=== PATIENT | male | born 1960 | race African-American/Black ===

== ENCOUNTER → 2020-04-16 | Outpatient (CLI) | payer OTHER ==
[2020-04-16 08:02] LABS: Basophils # (auto) 0.1 10 ^3/uL (0-0.2); Basophils % (auto) 1.4 % (0.0-2.0); Eosinophils # (auto) 0.3 10 ^3/uL (0-0.8); Eosinophils % (auto) 4.1 % (0.0-7.0); Hematocrit 49.4 % (41.0-53.0); Hemoglobin 16.8 g/dL (13.5-17.5); Lymphocytes # (auto) 1.8 10 ^3/uL (0.4-5.4); Mean Corpuscular Hemoglobin 31.6 pg (28.0-32.0); Mean Corpuscular Volume 93.1 fL (80.0-100.0); Monocytes # (auto) 0.8 10 ^3/uL (0-1.3); Monocytes % (auto) 11.2 % (0.0-12.0); Neutrophils # (auto) 3.9 10 ^3/uL (1.6-8.6); Neutrophils % (auto) 57.3 % (37.0-80.0); Nucleated Red Blood Cells % 0.3 %; Platelet Count (auto) 243 10^3/uL (140-450); Red Cell Distribution Width 13.1 % (11.8-14.3); White Blood Cell 6.8 10^3/uL (4.4-10.8)
[2020-04-16 08:46] LABS: Urine Bacteria NONE SEEN /hpf (None Seen); Urine Blood Negative /uL (Negative); Urine Mucus FEW (None Seen); Urine Specific Gravity 1.019 (1.001-1.035); Urine WBC <1 /hpf (0 - 3)
[2020-04-16 08:51] LABS: Albumin 3.5 g/dL (3.4-5.0); Potassium 4.4 mmol/L (3.5-5.1)
[2020-04-16 08:57] LABS: BUN/Creatinine Ratio 16.2; Bilirubin, Total 0.4 mg/dL (0.2-1.0); Total Protein 7.1 g/dL (6.4-8.2)
[2020-04-16 08:59] LABS: Prostate Specific Antigen 0.38 ng/mL (0.0-4.0)
== END | disposition home or self-care (01) ==
LOC: LAB 07:22
PROVIDERS: ATTEND Family Medicine
DX: Z12.5 Encounter for screening for malignant neoplasm of prostate (principal); I10 Essential (primary) hypertension; I25.10 Atherosclerotic heart disease of native coronary artery without angina pectoris; E66.9 Obesity, unspecified; E78.49 Other hyperlipidemia; F17.200 Nicotine dependence, unspecified, uncomplicated
CPT/HCPCS: 36415; 80053; 80061; 81001; 82607; 83036; 84153; 84443; 85025

== ENCOUNTER → 2021-04-21 | Outpatient (CLI) | payer OTHER | END | disposition home or self-care (01) | LOC: LAB 13:40 | PROVIDERS: ATTEND Nurse Practitioner Family | DX: Z20.822 Contact with and (suspected) exposure to COVID-19 (principal) | CPT/HCPCS: C9803; U0003 ==

== ENCOUNTER 2022-01-31 17:19 | Inpatient (IN) | payer OTHER ==
[~2022-01-31] VITALS: Ht 175.3 cm; Wt 111.5 kg
[2022-01-31 17:00] VITALS: BP 119/74
[2022-01-31 17:40] VITALS: BP 119/74
[2022-01-31] MEDS ORDERED: NITROGLYCERIN 0.4 MG SL TAB SL PRN (18:30)
[2022-01-31] MEDS ORDERED: HYDROcodone-ACET 5/325MG TAB PO PRN (18:30)
[2022-01-31] MEDS ORDERED: LORazepam 0.5 MG TAB PO PRN (18:30)
[2022-01-31] MEDS ORDERED: ACETAMINOPHEN 325 MG TAB PO PRN (18:30)
[2022-01-31] MEDS ORDERED: ONDANSETRON HCL 4 MG/2 ML VIAL IV PRN (18:30)
[2022-01-31] MEDS ORDERED: MORPHINE SULFATE INJ 2 MG/ml SYRG IV PRN ×2 (18:30)
[2022-01-31] MEDS ORDERED: CLON0.2D6 PO (18:36)
[2022-01-31] MEDS ORDERED: IBUP800T26 PO (18:36)
[2022-01-31] MEDS ORDERED: POTA1TAB4 PO (18:36)
[2022-01-31] MEDS ORDERED: MIN25T PO (18:36)
[2022-01-31] MEDS ORDERED: FUR20T PO (18:36)
[2022-01-31] MEDS ORDERED: CARV12.544 PO (18:36)
[2022-01-31] MEDS ORDERED: AMIODARONE 450mg/250ml AE 250 ML IV SCH (19:15)
[2022-01-31 19:44] LABS: Basophils # (auto) 0.2 10 ^3/uL (0-0.2); Basophils % (auto) 1.2 % (0.0-2.0); Eosinophils # (auto) 0.1 10 ^3/uL (0-0.8); Eosinophils % (auto) 0.9 % (0.0-7.0); Hematocrit 42.1 % (41.0-53.0); Hemoglobin 13.9 g/dL (13.5-17.5); Lymphocytes # (auto) 2.3 10 ^3/uL (0.4-5.4); Mean Corpuscular Hemoglobin 30.6 pg (28.0-32.0); Mean Corpuscular Volume 92.6 fL (80.0-100.0); Monocytes # (auto) 1.2 10 ^3/uL (0-1.3); Monocytes % (auto) 9.6 % (0.0-12.0); Neutrophils # (auto) 9.1 10 ^3/uL (1.6-8.6); Neutrophils % (auto) 70.3 % (37.0-80.0); Nucleated Red Blood Cells % 0.2 %; Red Blood Cells 4.54 10^6/uL (4.5-5.90); Red Cell Distribution Width 14.2 % (11.8-14.3)
[2022-01-31 19:49] LABS: Albumin 3.4 g/dL (3.4-5.0); Calcium 8.7 mg/dL (8.5-10.1); Magnesium 2.6 mg/dL (1.6-2.6); Potassium 4.1 mmol/L (3.5-5.1)
[2022-01-31 19:52] LABS: BUN/Creatinine Ratio 17.9; Bilirubin, Total 0.3 mg/dL (0.2-1.0); Phosphorus 4.6 mg/dL (2.5-4.90); Total Protein 6.5 g/dL (6.4-8.2)
[2022-01-31 19:56] LABS: INR 1.12 (0.9-1.15); Partial Thromboplastin Time 27.6 sec (24.6-33.4)
[2022-01-31 20:00] VITALS: BP 124/73
[2022-01-31] MEDS: ENOXAPARIN SOD 120 MG/0.8 ML SYRINGE SC SCH (21:59)
[2022-01-31 22:00] VITALS: BP 124/73
[2022-01-31] MEDS: SODIUM CHLOR 0.9% PF (SALINE LOCK) 10ML VIAL/SYR IV SCH (22:00)
[2022-01-31 22:30] LABS: Urine Bacteria NONE SEEN /hpf (None Seen); Urine Blood Negative /uL (Negative); Urine Specific Gravity 1.014 (1.001-1.035); Urine WBC <1 /hpf (0 - 3)
[2022-02-01] MEDS ORDERED: AMIODARONE 450mg/250ml AE 250 ML IV SCH (01:15)
[2022-02-01 05:00] VITALS: BP 131/82
[2022-02-01] MEDS: SODIUM CHLOR 0.9% PF (SALINE LOCK) 10ML VIAL/SYR IV SCH ×3 (05:28→21:58)
[2022-02-01 05:37] LABS: Potassium 4.4 mmol/L (3.5-5.1)
[2022-02-01 05:46] LABS: Albumin 3.3 g/dL (3.4-5.0); BUN/Creatinine Ratio 20.7; Bilirubin, Total 0.5 mg/dL (0.2-1.0); Calcium 9.1 mg/dL (8.5-10.1); Total Protein 6.2 g/dL (6.4-8.2)
[2022-02-01] MEDS: ENOXAPARIN SOD 120 MG/0.8 ML SYRINGE SC SCH ×2 (07:50→20:38)
[2022-02-01 09:00] VITALS: BP 168/103
[2022-02-01] MEDS: AMIODARONE HCL 200 MG TAB PO SCH ×2 (09:33→22:00)
[2022-02-01] MEDS ORDERED: ASPI-543 PO (11:19)
[2022-02-01] MEDS ORDERED: ISOS20TA5 PO (11:19)
[2022-02-01] MEDS ORDERED: ISOSORBIDE DINITRATE 10 MG TAB PO ONE (11:30)
[2022-02-01] MEDS ORDERED: CARVEDILOL 12.5 MG TAB PO ONE (11:30)
[2022-02-01] MEDS ORDERED: cloNIDine HCL 0.1 MG TAB PO ONE (11:30)
[2022-02-01] MEDS ORDERED: ASPirin 81 mg TAB PO ONE (11:30)
[2022-02-01] MEDS ORDERED: MINOXIDIL 2.5 MG TAB PO ONE (11:30)
[2022-02-01 13:00] VITALS: BP 155/87
[2022-02-01] MEDS: CARVEDILOL 12.5 MG TAB PO SCH (18:01)
[2022-02-01] MEDS ORDERED: DEXTROSE (50%) 50ML SYRG IV PRN (18:30)
[2022-02-01] MEDS ORDERED: ERGOCALCIFEROL 50,000 UNIT(1.25MG) CAP PO SCH (18:30)
[2022-02-01 21:39] VITALS: BP 136/84
[2022-02-01] MEDS: cloNIDine HCL 0.1 MG TAB PO SCH (21:59)
[2022-02-01] MEDS: InsuLIN REG 1unit/0.01ml Soln (100units/ml) SC SCH (22:00)
[2022-02-01] MEDS: ISOSORBIDE DINITRATE 10 MG TAB PO SCH (22:00)
[2022-02-01] MEDS: ACCU-CHEK COMFORT CURVE STRIP VI SCH (22:01)
[2022-02-01] MEDS: MINOXIDIL 2.5 MG TAB PO SCH (22:01)
[2022-02-02 04:00] VITALS: BP 114/70
[2022-02-02 04:59] VITALS: BP 114/70
[2022-02-02 05:34] LABS: Protein, Urine 15.9 mg/dL (0.0-11.9)
[2022-02-02] MEDS: SODIUM CHLOR 0.9% PF (SALINE LOCK) 10ML VIAL/SYR IV SCH (06:07)
[2022-02-02] MEDS: InsuLIN REG 1unit/0.01ml Soln (100units/ml) SC SCH ×2 (06:08→11:30)
[2022-02-02] MEDS: ACCU-CHEK COMFORT CURVE STRIP VI SCH ×2 (06:08→11:54)
[2022-02-02 06:12] LABS: Calcium 8.3 mg/dL (8.5-10.1); Magnesium 2.8 mg/dL (1.6-2.6); Potassium 4.1 mmol/L (3.5-5.1)
[2022-02-02 06:14] LABS: BUN/Creatinine Ratio 19.7; Phosphorus 3.7 mg/dL (2.5-4.90)
[2022-02-02 08:10] VITALS: BP 138/85
[2022-02-02] MEDS ORDERED: APIXABAN 5 MG TAB PO SCH (08:37)
[2022-02-02] MEDS: CARVEDILOL 12.5 MG TAB PO SCH (08:37)
[2022-02-02 09:00] VITALS: BP 138/85
[2022-02-02] MEDS ORDERED: AMIO200T4 PO (09:38)
[2022-02-02] MEDS ORDERED: ERGO1CAP23 PO (09:38)
[2022-02-02] MEDS ORDERED: APIX5TAB PO (09:38)
[2022-02-02] MEDS ORDERED: ASPirin 81 mg TAB PO SCH (10:00)
[2022-02-02] MEDS ORDERED: FUROSEMIDE 20 MG/2 ML VIAL IV SCH (10:00)
[2022-02-02] MEDS: AMIODARONE HCL 200 MG TAB PO SCH (10:02)
[2022-02-02] MEDS: cloNIDine HCL 0.1 MG TAB PO SCH (10:02)
[2022-02-02] MEDS: ISOSORBIDE DINITRATE 10 MG TAB PO SCH (10:03)
[2022-02-02] MEDS: MINOXIDIL 2.5 MG TAB PO SCH (10:03)
[2022-02-02 11:19] VITALS: BP 135/76
== END 2022-02-02 12:30 | disposition home or self-care (01) | DRG 291 ==
LOC: UNDOADMIN 17:21 → TELE-CENTR 17:21
PROVIDERS: ADMIT Internal Medicine; ATTEND Internal Medicine
DX: I13.0 Hypertensive heart and chronic kidney disease with heart failure and stage 1 through stage 4 chronic kidney disease, or unspecified chronic kidney disease (principal); I50.43 Acute on chronic combined systolic (congestive) and diastolic (congestive) heart failure; N17.0 Acute kidney failure with tubular necrosis; E44.0 Moderate protein-calorie malnutrition; D68.69 Other thrombophilia; I48.91 Unspecified atrial fibrillation; I42.9 Cardiomyopathy, unspecified; E11.22 Type 2 diabetes mellitus with diabetic chronic kidney disease; N18.32 Chronic kidney disease, stage 3b; E66.01 Morbid (severe) obesity due to excess calories; E78.5 Hyperlipidemia, unspecified; F17.210 Nicotine dependence, cigarettes, uncomplicated; I25.10 Atherosclerotic heart disease of native coronary artery without angina pectoris; Z20.822 Contact with and (suspected) exposure to COVID-19; Z79.899 Other long term (current) drug therapy; Z82.3 Family history of stroke; Z82.49 Family history of ischemic heart disease and other diseases of the circulatory system; Z95.5 Presence of coronary angioplasty implant and graft; Z68.36 Body mass index [BMI] 36.0-36.9, adult
CPT/HCPCS: 36415; 71046; 78582; 80048; 80053; 80061; 81001; 82306; 82570; 82962; 83036; 83735; 83880; 83935; 84100; 84156; 84300; 84443; 84484; 85025; 85379; 85610; 85730; 87081; 93005; 93306; 93970; G0378

== ENCOUNTER → 2022-03-16 | Outpatient (CLI) | payer OTHER ==
[~2022-03-16] MED LIST: AMIO200T4 PO; APIX5TAB PO; CARV12.544 PO; CLON0.2D6 PO; ERGO1CAP23 PO; FUR20T PO; ISOS20TA5 PO; MIN25T PO; POTA1TAB4 PO
[2022-03-16 11:09] LABS: Basophils # (auto) 0.1 10 ^3/uL (0-0.2); Basophils % (auto) 0.8 % (0.0-2.0); Eosinophils # (auto) 0.2 10 ^3/uL (0-0.8); Eosinophils % (auto) 3.9 % (0.0-7.0); Hematocrit 43.5 % (41.0-53.0); Hemoglobin 14.7 g/dL (13.5-17.5); Lymphocytes # (auto) 1.2 10 ^3/uL (0.4-5.4); Lymphocytes % (auto) 18.7 % (10.0-50.0); Mean Corpuscular Hgb Conc. 33.7 g/dL (32.0-36.0); Mean Corpuscular Volume 91.9 fL (80.0-100.0); Monocytes # (auto) 0.8 10 ^3/uL (0-1.3); Monocytes % (auto) 12.6 % (0.0-12.0); Neutrophils # (auto) 4.1 10 ^3/uL (1.6-8.6); Nucleated Red Blood Cells % 0.1 %; Red Blood Cells 4.74 10^6/uL (4.5-5.90); Red Cell Distribution Width 13.6 % (11.8-14.3); White Blood Cell 6.4 10^3/uL (4.4-10.8)
== END | disposition home or self-care (01) ==
LOC: LAB 10:42
PROVIDERS: ATTEND Internal Medicine
DX: Z12.11 Encounter for screening for malignant neoplasm of colon (principal); I10 Essential (primary) hypertension; E55.9 Vitamin D deficiency, unspecified; R73.03 Prediabetes
CPT/HCPCS: 36415; 82043; 84153; 85025

== ENCOUNTER 2024-09-17 06:24 | Inpatient (IN) | payer OTHER, MEDICARE ==
[~2024-09-17] VITALS: Ht 175.3 cm; Wt 95.0 kg
[2024-09-17] VITALS (8 sets, daily range): BP systolic 125; BP diastolic 69; PULSE 74–98; RESP 16–20; TEMP 98.3; O2SAT 95–100
[~2024-09-17 06:24] MED LIST changes: +AMIO200T13 PO; -AMIO200T4 PO; -FUR20T PO; +FURO20TA4 PO
--- NOTE | 2024-09-17 06:41 | ED.PDOC ---
SOB-HPI HPI Comments 64 year old male presents to the ED with chief complaint of SOB. Patient reports that he has been experiencing worsening SOB with associated cough for the past 2 days. Patient relays that he has similar symptoms 2 weeks ago and was seen at another hospital. Patient states he was prescribed with an albuterol inhaler and nebulizer along with Prednisone, but his nebulizer has not provided much relief for his SOB these past 2 days. Patient denies any N/V, chest pain, fever, chills, nasal congestion, headache, or dizziness. Time Seen by MD: 06:37 Reviewed notes: Nurses Notes, Medications, Allergies Information Source: Patient Mode of Arrival: Ambulatory Severity: Moderate Timing: Days Duration: Since onset Context: At Rest PE Risk Factors: None History of: None Prehospital treatment: Breathing Tx Modifying Factors: Nothing Associated Signs and Symptoms: Cough If cough with SOB: Non-Productive Past Medical History PAST MEDICAL HISTORY: HTN, CT Surgical History: PTCA Family History Family History: Reviewed,noncontributory to illness Social History Smoker: Cigarettes Alcohol: Denies ETOH Use Drugs: Denies Drug Use Lives In: Home Constitutional: denies: chills, diaphoresis, fatigue, fever, malaise, sweats, weakness, others EENTM: denies: blurred vision, double vision, ear bleeding, ear discharge, ear drainage, ear pain, ear ringing, eye pain, eye redness, hearing loss, mouth pain, mouth swelling, nasal discharge, nose bleeding, nose congestion, nose pain, photophobia, tearing, throat pain, throat swelling, voice changes, others Respiratory: reports: cough, shortness of breath; denies: hemoptysis, orthopnea, SOB at rest, SOB with excertion, stridor, wheezing, others Cardiovascular: denies: chest pain, dizzy spells, diaphoresis, Dyspnea on exertion, edema, irregular heart beat, left arm pain, lightheadedness, palpitations, PND, syncope, others Gastrointestinal: denies: abdomen distended, abdominal pain, blood streaked bowels, constipated, diarrhea, dysphagia, difficulty swallowing, hematemesis, melena, nausea, poor appetite, poor fluid intake, rectal bleeding, rectal pain, vomiting, others Genitourinary: denies: burning, dysuria, flank pain, frequency, hematuria, incontinence, penile discharge, penile sore, pain, testicle pain, testicle swelling, urgency, others Neurological: denies: dizziness, fainting, headache, left sided numbness, left sided weakness, numbness, paresthesia, pre-existing deficit, right sided numbness, right sided weakness, seizure, speech problems, tingling, tremors, weakness, others Musculoskeletal: denies: back pain, gout, joint pain, joint swelling, muscle pain, muscle stiffness, neck pain, others Integumetry: denies: bruises, change in color, change in hair/nails, dryness, laceration, lesions, lumps, rash, wounds, others Allergic/Immunocompromised: denies: Difficulty Healing, Frequent Infections, Hives, Itching, others Hematologic/Lymphatic: denies: anemia, blood clots, easy bleeding, easy bruising, swollen glands, others Endocrine: denies: excessive hunger, excessive sweating, excessive thirst, excessive urination, flushing, intolerance to cold, intolerance to heat, unexplained weight gain, unexplained weight loss, others Psychiatric: denies: anxiety, bipolar disorder, depression, hopeless, panic disorder, schizophrenia, sleepless, suicidal, others All Other Systems: Reviewed and Negative Physical Exam General Appearance: Moderate Distress, Normal HEENT: Normal ENT Inspection, Pharynx Normal, TMs Normal Neck: Full Range of Motion, Non-Tender, Normal, Normal Inspection Respiratory: Chest Non-Tender, No Accessory Muscle Use, No Respiratory Distre ss, Other (Coarse breath sounds) Cardiovascular: No Edema, No JVD, No Murmur, No Gallop, Normal Peripheral Pulses, Regular Rate/Rhythm Breast Exam: Deferred Gastrointestinal: No Organomegaly, Non Tender, No Pulsatile Mass, Normal Bowel Sounds, Soft Genitalia: Deferred Pelvic: Deferred Rectal: Deferred Extremities: No calf tenderness, Normal capillary refill, Normal inspection, Normal range of motion, Non-tender, No pedal edema Musculoskeletal : Apperance: Normal Neurologic: Alert, game programer II-XII nml as Tested, No Motor Deficits, Normal Affect, Normal Mood, No Sensory Deficits Cerebellar Function: Normal Reflexes: Normal Skin: Dry, Normal Color, Warm Peripheral Pulses: 3+ Radial (R), 3+ Radial (L) Lymphatic: No Adenopathy EKG EKG : Pulse Rate (adult): 93 [place]: Normal Cardiac Rhythm: NSR Block: None Hypertrophy: None ST: Normal Was a procedure done? Was a procedure done?: No Differential Dx Differential Diagnosis: Asthma, CHF, COPD, Myocardial infarction, Pneumonia, Respiratory Distress X-Ray, Labs, Meds, VS Vital Signs Date Time Temp Pulse Resp B/P (MAP) Pulse Ox O2 Delivery O2 Flow Rate FiO2 09/17/24 07:06 93 09/17/24 06:48 20 96 Room Air* 0 21 09/17/24 06:40 93 09/17/24 06:30 97 Room Air* 0 21 09/17/24 06:30 98.3 91 18 149/92 (111) 97 98.3 Lab Test 09/17/24 08:08 09/17/24 07:00 Range/Units Troponin I High Sensitivity Pending 865 *H </=54 ng/L White Blood Count 9.0 4.4-10.8 10^3/uL Red Blood Count 4.32 L 4.5-5.90 10^6/uL Hemoglobin 13.6 13.5-17.5 g/dL Hematocrit 40.5 L 41.0-53.0 % Mean Corpuscular Volume 93.8 80.0-100.0 fL Mean Corpuscular Hemoglobin 31.6 28.0-32.0 pg Mean Corpuscular Hemoglobin Concent 33.7 32.0-36.0 g/dL Red Cell Distribution Width 14.3 11.8-14.3 % Platelet Count 266 140-450 10^3/uL Mean Platelet Volume 7.6 6.9-10.8 fL Neutrophils (%) (Auto) 67.2 37.0-80.0 % Lymphocytes (%) (Auto) 13.7 10.0-50.0 % Monocytes (%) (Auto) 15.8 H 0.0-12.0 % Eosinophils (%) (Auto) 2.5 0.0-7.0 % Basophils (%) (Auto) 0.8 0.0-2.0 % Neutrophils # (Auto) 6.1 1.6-8.6 10 ^3/uL Lymphocytes # (Auto) 1.2 0.4-5.4 10 ^3/uL Monocytes # (Auto) 1.4 H 0-1.3 10 ^3/uL Eosinophils # (Auto) 0.2 0-0.8 10 ^3/uL Basophils # (Auto) 0.1 0-0.2 10 ^3/uL Nucleated Red Blood Cells 0.0 % Sodium Level 145 136-145 mmol/L Potassium Level 3.9 3.5-5.1 mmol/L Chloride Level 108 H 98-107 mmol/L Carbon Dioxide Level 27 20-31 mmol/L Anion Gap 10 5-15 Blood Urea Nitrogen 36 H 9-23 mg/dL Creatinine 2.19 H 0.700-1.30 mg/dL Glomerular Filtration Rate Calc 32 >90 mL/min BUN/Creatinine Ratio 16.4 10.0-20.0 Serum Glucose 138 H 74-106 mg/dL Calcium Level 10.0 8.7-10.4 mg/dL Current Medications Medications (Trade) Dose Ordered Sig/[place] Route Start Time Stop Time Status Last Admin Methylprednisolone Sodium Succinate (Solu Medrol) 40 mg ONCE ONCE IV 09/17/24 06:45 09/17/24 06:46 DC 09/17/24 08:05 Albuterol (Ventolin Medneb) 5 mg ONCE ONCE NEB 09/17/24 06:45 09/17/24 06:46 DC 09/17/24 06:48 Ipratropium [place] (Atrovent Medneb) 0.5 mg ONCE ONCE NEB 09/17/24 06:45 09/17/24 06:46 DC 09/17/24 06:48 Ceftriaxone Sodium 50 ml @ 100 mls/hr ONCE ONCE IV 09/17/24 06:45 09/17/24 07:14 DC 09/17/24 08:06 Chest XR: FINDINGS: LUNGS AND PLEURAL SPACES: Left basilar atelectasis or pneumonia. HEART: Cardiomegaly with mild congestion. MEDIASTINUM: Unremarkable. Normal mediastinal contour. BONES/JOINTS: Unremarkable. No acute fracture. OTHER FINDINGS: . . IMPRESSION: 1. Left basilar atelectasis or pneumonia. 2. Cardiomegaly with mild congestion. Patient alert. Complaining of shortness a breath. Vitals stable. Answering questions. Blood pressure elevated. Chest x-ray reviewed does show pneumonia. Establish intravenous access. Was given fluids. Was given Rocephin. Was given azithromycin. Was given steroid. Cardiac marker elevated. EKG does not show any acute changes. Cardiology consultation. Was given Lovenox. Explained to the patient his lab results along with chest x-ray findings. Continue monitoring. Images Reviewed?: Images reviewed and evaluated by me Time of 1ST Reevaluation: 07:37 Reevaluation 1ST: Unchanged Patient Education/Counseling: Diagnosis, Treatment Family Education/Counseling: No Family Present Additional Information The following tests were ordered, and results were reviewed by me: CBC, BMP, troponin, Chest XR, EKG Additional Information was gathered from interviewing the following independent historians: None I reviewed and agreed with the following test results read by other providers: Chest XR I discussed treatment and results with medical personnel and: patient Comprehensive systems review obtained and negative except for what is stated in the HPI. Departure 1 Departure Time of Disposition: 08:18 Impression: Primary Impression: NSTEMI (non-ST elevated myocardial infarction) Additional Impression: Pneumonia Qualified Codes: J18.9 - Pneumonia, unspecified organism Disposition: ADMITTED INPATIENT Admit to: Med Surg Condition: Guarded Comments Spoke to and examined patient at 0637, discussing treatment plan at this time. Critical Care Note Critical Care Time?: Yes (90 min-critical care time only) Critical care comment: Elevated troponin was given Lovenox continue monitoring Stability Stability form required: No Heart Score Heart Score: Heart Score Response (Comments) Value History Moderate Suspicious 1 EKG Normal 0 Age >65 2 Risk Factors >3 or Hx ASHD 2 Troponin >3 x's Normal limit 2 Total 7 I personally scribed for MARTIN MORALES MD (KATHIE) on 09/17/24 at 06:41. Electronically submitted by Candido Whittington ([email or web address]). I personally scribed for MARTIN MORALES MD (KATHIE) on 09/17/24 at 07:06. E lectronically submitted by Candido Whittington ([email or web address]). I personally scribed for MARTIN MORALES MD (KATHIE) on 09/17/24 at 07:59. Electronically submitted by Candido Whittington ([email or web address]). MARTIN MORALES MD September 17, 2024 06:41
[2024-09-17] MEDS: ALBUTEROL SULF 2.5 MG/0.5ML(0.5%) NEB SOLN NEB ONE (06:48)
[2024-09-17] MEDS: IPRATROPIUM BROM 0.5 MG/2.5ML INH SOL NEB ONE (06:48)
[2024-09-17 07:18] LABS: Basophils # (auto) 0.1 10 ^3/uL (0-0.2); Basophils % (auto) 0.8 % (0.0-2.0); Eosinophils # (auto) 0.2 10 ^3/uL (0-0.8); Eosinophils % (auto) 2.5 % (0.0-7.0); Hematocrit 40.5 % (41.0-53.0); Hemoglobin 13.6 g/dL (13.5-17.5); Lymphocytes # (auto) 1.2 10 ^3/uL (0.4-5.4); Lymphocytes % (auto) 13.7 % (10.0-50.0); Mean Corpuscular Hemoglobin 31.6 pg (28.0-32.0); Mean Corpuscular Hgb Conc. 33.7 g/dL (32.0-36.0); Mean Corpuscular Volume 93.8 fL (80.0-100.0); Monocytes # (auto) 1.4 10 ^3/uL (0-1.3); Monocytes % (auto) 15.8 % (0.0-12.0); Neutrophils # (auto) 6.1 10 ^3/uL (1.6-8.6); Neutrophils % (auto) 67.2 % (37.0-80.0); Platelet Count (auto) 266 10^3/uL (140-450); Red Blood Cells 4.32 10^6/uL (4.5-5.90); Red Cell Distribution Width 14.3 % (11.8-14.3)
[2024-09-17 07:26] LABS: Potassium 3.9 mmol/L (3.5-5.1); Sodium 145 mmol/L (136-145)
[2024-09-17 07:27] LABS: Anion Gap 10 (5-15); Carbon Dioxide 27 mmol/L (20-31)
--- NOTE | 2024-09-17 07:31 | ECG ---
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
[2024-09-17 07:32] LABS: BUN/Creatinine Ratio 16.4 (10.0-20.0); Blood Urea Nitrogen 36 mg/dL (9-23); Chloride 108 mmol/L (98-107); Glucose 138 mg/dL (74-106)
--- NOTE | 2024-09-17 07:36 | DVH ---
EXAM: XR Chest, 1 View CLINICAL INDICATION: sob TECHNIQUE: Frontal view of the chest. COMPARISON: None FINDINGS: LUNGS AND PLEURAL SPACES: Left basilar atelectasis or pneumonia. HEART: Cardiomegaly with mild congestion. MEDIASTINUM: Unremarkable. Normal mediastinal contour. BONES/JOINTS: Unremarkable. No acute fracture. OTHER FINDINGS: . . IMPRESSION: 1. Left basilar atelectasis or pneumonia. 2. Cardiomegaly with mild congestion.
[2024-09-17] MEDS: methylPREDNISolone SOD SUCC 40 MG/ML VL IV ONE (08:05)
[2024-09-17] MEDS: cefTRIAXone 1GM/50ML D5W 50 ML IV ONE (08:06)
[2024-09-17] MEDS ORDERED: DOCUSATE SOD 100 MG CAP PO PRN (09:15)
[2024-09-17] MEDS ORDERED: NITROGLYCERIN 0.4 MG SL TAB SL PRN (09:15)
[2024-09-17] MEDS ORDERED: ONDANSETRON HCL 4 MG/2 ML VIAL IV PRN (09:15)
[2024-09-17] MEDS ORDERED: MORPHINE SULFATE INJ 2 MG/ml SYRG IV PRN (09:15)
[2024-09-17] MEDS ORDERED: ACETAMINOPHEN 325 MG TAB PO PRN (09:15)
[2024-09-17] MEDS: ENOXAPARIN SOD 120 MG/0.8 ML SYRINGE SC ONE (09:21)
[2024-09-17] MEDS ORDERED: CLON0.2T PO (09:34)
[2024-09-17] MEDS ORDERED: BUME2TAB5 PO (09:34)
--- NOTE | 2024-09-17 09:43 | DVHHP2 ---
History of Present Illness Reason for Visit: Shortness of breath History of Present Illness Rakesh Irwin is a 64-year-old male with past medical history of CHF, coronary artery disease, [place] with 2 stents 2019, chronic kidney disease, hypertension, hyperlipidemia, and COPD who came in due to shortness of breath. Patient states about 2 weeks ago he had a cold, he went to his primary care provider and was given antibiotics, steroids, and breathing treatments. He states they were helping at first, but 2 days ago his shortness of breath worsened and the breathing treatments were not helping. He denies chest pain, but does state that he has been becoming increasingly more fatigued with activity over the last few months. Cardiovascular: CAD, CHF, HTN, [place], hyperipidemia Pulmonary: COPD Past Surgical History: Other (PTCA 2019 2 cardiac stents placed) Smoke: <1 pack per day ALCOHOL: rare Drugs: None Lives: with Family Domestic Violence: Neg Review of Systems Constitutional: Yes: Malaise; No: Fever, Chills, Sweats, Weakness, Other Eyes: No: Pain, Vision change, Conjunctivae inflammation, Eyelid inflammation, Other, Redness ENT: No: Ear pain, Ear discharge, Nose pain, Nose discharge, Nose congestion, Mouth pain, Mouth swelling, Throat pain, Throat swelling, Other Respiratory: Shortness of breath, SOB with excertion, Wheezing; No: Cough, Dry, Hemoptysis, Pleuritic Pain, Sputum, Wheezing, Other Cardiovascular: No: Chest Pain, Palpitations, Orthopnea, Paroxysmal Noc. Dyspnea, Edema, Lt Headedness, Other Gastrointestinal: No: Nausea, Vomiting, Abdominal Pain, Diarrhea, Constipation, Melena, Hematochezia, Other Genitourinary: No Dysuria, No Frequency, No Incontinence, No Hematuria, No Retention, No Other Musculoskeletal: No: other, neck pain, shoulder pain, arm pain, back pain, hand pain, leg pain, foot pain Skin: No: Rash, Lesions, Jaundice, Bruising, Other Neurological: No: Weakness, Numbness, Incoordination, Change in speech, Confusion, Seizures, Other Allergies: Coded Allergies: NO KNOWN ALLERGIES (Unverified , 01/31/22) Medications Current Medications Medications Dose Ordered Sig/[place] Route Start Time Stop Time Status Last Admin Dose Admin Sodium Chloride 10 ml Q8HR IV 09/17/24 14:00 UNV Acetaminophen/ Hydrocodone Bitart 1 tab Q4HP PRN PO 09/17/24 09:15 UNV Ondansetron HCl 4 mg Q4HP PRN IV 09/17/24 09:15 UNV Docusate Sodium 100 mg BIDPRN PRN PO 09/17/24 09:15 UNV Acetaminophen 650 mg Q6HP PRN PO 09/17/24 09:15 UNV Nitroglycerin 0.4 mg Q5MINP PRN SL 09/17/24 09:15 UNV Morphine Sulfate 2 mg Q30M PRN IV 09/17/24 09:15 UNV Apixaban 5 mg BID@0800,2000 PO 09/17/24 20:00 UNV Patient Own Medication 20 mg BID PO 09/17/24 10:00 UNV Patient Own Medication 1 tab BID PO 09/17/24 10:00 UNV Exam Vital Signs Vital Signs Date Time Temp Pulse Resp B/P (MAP) Pulse Ox O2 Delivery O2 Flow Rate FiO2 09/17/24 08:00 98.3 78 20 125/69 (87) 96 98.3 09/17/24 08:00 Nasal Cannula* 2 28 General Appearance: Alert, Oriented X3, Cooperative, moderate distress HEENT: Atraumatic, PERRLA, Mucous membr. moist/pink Respiratory: Other (bilateral wheezing, diminished breath sounds, short of breath) Cardiovascular: Regular rate, Normal S1, Normal S2, Other (Elevated troponin) Abdominal: Normal bowel sounds, Soft, No tenderness Extremities: No clubbing, No cyanosis, Other (bilateral LE pitting edema) Skin: No rashes, No breakdown, No significant lesion Neuro: Normal gait, Normal speech, Strength at 5/5 X4 ext, Normal tone Psych/Mental Status: Mental status NL, Mood NL Labs/Xrays Labs Test 09/17/24 08:08 09/17/24 07:00 Range/Units Troponin I High Sensitivity 892 *H </=54 ng/L White Blood Count 9.0 4.4-10.8 10^3/uL Red Blood Count 4.32 L 4.5-5.90 10^6/uL Hemoglobin 13.6 13.5-17.5 g/dL Hematocrit 40.5 L 41.0-53.0 % Mean Corpuscular Volume 93.8 80.0-100.0 fL Mean Corpuscular Hemoglobin 31.6 28.0-32.0 pg Mean Corpuscular Hemoglobin Concent 33.7 32.0-36.0 g/dL Red Cell Distribution Width 14.3 11.8-14.3 % Platelet Count 266 140-450 10^3/uL Mean Platelet Volume 7.6 6.9-10.8 fL Neutrophils (%) (Auto) 67.2 37.0-80.0 % Lymphocytes (%) (Auto) 13.7 10.0-50.0 % Monocytes (%) (Auto) 15.8 H 0.0-12.0 % Eosinophils (%) (Auto) 2.5 0.0-7.0 % Basophils (%) (Auto) 0.8 0.0-2.0 % Neutrophils # (Auto) 6.1 1.6-8.6 10 ^3/uL Lymphocytes # (Auto) 1.2 0.4-5.4 10 ^3/uL Monocytes # (Auto) 1.4 H 0-1.3 10 ^3/uL Eosinophils # (Auto) 0.2 0-0.8 10 ^3/uL Basophils # (Auto) 0.1 0-0.2 10 ^3/uL Nucleated Red Blood Cells 0.0 % Sodium Level 145 136-145 mmol/L Potassium Level 3.9 3.5-5.1 mmol/L Chloride Level 108 H 98-107 mmol/L Carbon Dioxide Level 27 20-31 mmol/L Anion Gap 10 5-15 Blood Urea Nitrogen 36 H 9-23 mg/dL Creatinine 2.19 H 0.700-1.30 mg/dL Glomerular Filtration Rate Calc 32 >90 mL/min BUN/Creatinine Ratio 16.4 10.0-20.0 Serum Glucose 138 H 74-106 mg/dL Calcium Level 10.0 8.7-10.4 mg/dL EXAM: XR Chest, 1 View FINDINGS: LUNGS AND PLEURAL SPACES: Left basilar atelectasis or pneumonia. HEART: Cardiomegaly with mild congestion. MEDIASTINUM: Unremarkable. Normal mediastinal contour. BONES/JOINTS: Unremarkable. No acute fracture. OTHER FINDINGS: . . IMPRESSION: 1. Left basilar atelectasis or pneumonia. 2. Cardiomegaly with mild congestion. Assessment/Plan Assessment/Plan Assessment: Pneumonia, NSTEMI, CHF, Chronic kidney disease, Hypertension, COPD, Hyperlipidemia, Plan: Admit to Tele, Cardiology consult, ECHO, Anticoagulation per cardiology, BNP, Breathing treatments, IV antibiotics, IV steroids, Home mediations reconciled, Plan discussed with: Patient My Orders Orders - MACARIO MOSCOSO Procedure Category Date Status Time Admit ADMIT 09/17/24 Transmitted 09:15 Code Status CODE 09/17/24 Transmitted 09:15 Sodium Chloride Lock PHA 09/17/24 Logged (Saline Lock Ns) 14:00 Hydrocodone-Acet PHA 09/17/24 Logged 5/325mg Tab ([place] 09:15 Ondansetron Hcl PHA 09/17/24 Logged (Zofran) 09:15 Docusate Sodium PHA 09/17/24 Logged Capsule (Colace 09:15 Complete Blood Count LAB 09/18/24 Verified 04:00 Comprehensive LAB 09/18/24 Verified Metabolic Panel 04:00 Npo (Nothing By DIET 09/17/24 Transmitted Mouth) Diet Breakfast Condition: Serious ANDRZEJ 09/17/24 In Process 09:15 Acetaminophen Tablet PHA 09/17/24 Logged (Tylenol Tablet) 09:15 Nitroglycerin PHA 09/17/24 Logged Sublingual (Ntrostat 09:15 Morphine Sulfate PHA 09/17/24 Logged Injection 09:15 Stat Ekg For Chest ANDRZEJ 09/17/24 In Process Pain 09:15 Notify Of Changes ANDRZEJ 09/17/24 In Process From Base 09:15 Landscaping Crew Leader For ANDRZEJ 09/17/24 In Process 24 Hours 09:15 Emergency Dysrhythmia ANDRZEJ 09/17/24 In Process Protocol 09:15 Rhythm Strips Once ANDRZEJ 09/17/24 In Process Every Shift 09:15 Oxygen By Nasal RT 09/17/24 Transmitted Cannula 09:15 * Cardiology Consult CONS 09/17/24 Transmitted 09:15 Apixaban (Eliquis) PHA 09/17/24 Logged 20:00 (Nf) Isosorbide PHA 09/17/24 Logged Dinitrate 10:00 B-Type Natriuretic LAB 09/17/24 Logged Peptide 09:34 (Nf) Clonidine PHA 09/17/24 Logged Hydrochloride 10:00 Date of Service: September 17, 2024 Billing Provider: MACARIO MOSCOSO Common Visit Codes: [id number] INP/OBS CARE (HIGH) MACARIO MOSCOSO September 17, 2024 09:43
[2024-09-17] MEDS: cloNIDine HCL 0.1 MG TAB PO SCH (10:00)
[2024-09-17] MEDS ORDERED: methylPREDNISolone SOD SUCC 40 MG/ML VL IV SCH (10:00)
[2024-09-17] MEDS: ISOSORBIDE DINITRATE 10 MG TAB PO SCH (10:50)
[2024-09-17] MEDS: AZITHROMYCIN 500MG/ 250ML 250 ML IV ONE (11:07)
[2024-09-17 11:13] LABS: Base Excess -1.5 mmol/L (-2.0-3.0)
[2024-09-17 11:13] LABS: Urine Bacteria None Seen /hpf (None Seen)
[2024-09-17] MEDS: IPRATROPIUM BROM 0.5 MG/2.5ML INH SOL NEB SCH (11:14)
[2024-09-17] MEDS: ALBUTEROL SULF 2.5 MG/0.5ML(0.5%) NEB SOLN NEB SCH (11:14)
[2024-09-17 11:18] LABS: Magnesium 2.2 mg/dL (1.6-2.6)
[2024-09-17 11:28] LABS: Urine Blood Negative /uL (Negative); Urine Clarity Clear (Clear); Urine Color Colorless (Yellow); Urine Hyaline Cast FEW /lpf (0 - 2); Urine Protein, UAD Negative (Negative); Urine Specific Gravity 1.007 (1.001-1.035); Urine Squamous Epithelial Cell FEW /hpf (<5); Urine Urobilinogen Normal (Negative)
[2024-09-17] MEDS: FUROSEMIDE 20 MG/2 ML VIAL IV ONE (11:28)
[2024-09-17] MEDS: ASPirin 325 MG TAB PO ONE (11:28)
--- NOTE | 2024-09-17 11:49 | DVHINCON2 ---
[facility] 09/17/24 1149: Date Seen: September 17, 2024 Referring Physician MARTHA Mckee Reason for Consultation NSTEMI History of Present Illness This is a 64-year-old man who presented to the emergency room with a chief complaint of shortness of breath. The patient complains of progressive shortness of breath associated with SCHNEIDER, PND, bilateral lower extremity edema, and a cough. He also complains of substernal chest pain worse when breathing. Per patient, symptoms are similar to those from a previous AR undergoing success ful PCI in 2019. A 12 lead electrocardiogram revealed a sinus rhythm with a prolonged QTc at 558 ms and with frequent PACs. Troponin levels are trending up with latest in the 900s ng/L. States he was recently diagnosed with bronchitis/pneumonia. At that time, he presented to [facility] Emergency Room where he underwent a chest x-ray and was treated with a b reathing treatment, steroids, and sent home on azithromycin, prednisone, and albuterol at the end of July/2024. Follows-up in the outpatient setting with Dr. Giron with latest appointment completed 3 mos ago. Last stress test was last year without ischemic findings. Significant medical history includes coronary artery disease status post PTCA including two MAURICE in 2019 at [facility] (on ASA), paroxysmal atrial fibrillation (on amiodarone/Eliquis), pulmonary hypertension (on sildenafil), congestive heart failure with preserved EF, COPD, chronic kidney disease stage 3, hypertension, dyslipidemia, scp-[id number] diabetes mellitus, current tobacco use, and obesity. Past Medical History Past medical history reviewed. No other significant than mentioned above. Past Surgical History PTCA including two MAURICE, 2019 Family History Family history reviewed. Social History Denies the use of illicit drugs or alcohol. Admits to tobacco use, one pack of cigarettes every other day. Allergies: Coded Allergies: NO KNOWN ALLERGIES (Unverified , 01/31/22) Home Meds Active Scripts Amiodarone HCl (Amiodarone HCl) 200 Mg Tab, 200 MG PO BID for 30 Days, #60 TAB Prov:JOSE MEDINA MD 02/02/22 Ergocalciferol (VITAMIN D 83341 UNIT) 50,[place], [address] UNIT PO Q7D for 7 Days, #7 CAP Prov:JOSE MEDINA MD 02/02/22 Apixaban Base (ELIQUIS) 5 Mg Tab, 5 MG PO BID@0800,2000 for 30 Days, #60 TAB Prov:JOSE MEDINA MD 02/02/22 Reported Medications Carvedilol (Carvedilol) 25 Mg Tab, 25 MG PO Q12HR, MG 09/17/24 Hydralazine Hcl (Hydralazine Hcl) 50 Mg Tab, 50 MG PO, MG 09/17/24 Spironolactone (Spironolactone) 25 Mg Tab, 25 MG PO, TAB 09/17/24 Clonidine Hydrochloride (Clonidine Hcl) 0.2 Mg Tab, 1 TAB PO BID 09/17/24 Bumetanide (Bumetanide) 2 Mg Tab, 1 TAB PO DAILY 09/17/24 Isosorbide Dinitrate (Isosorbide Dinitrate) 20 Mg Tab, 20 MG PO BID, MG 02/01/22 Minoxidil (Loniten) 2.5 Mg Tb, 2 TAB PO BID, #180 TAB 1 Refill 01/31/22 Carvedilol (Carvedilol) 12.5 Mg Tab, 1 TAB PO BID 01/31/22 Potassium Chloride (K-Tab) 20 Meq Tab, 1 TAB PO DAILY 01/31/22 Discontinued Reported Medications Clonidine Hydrochloride (Clonidine Hcl) 0.2 Mg/24 Hr Dis, 0.2 MG PO BID for 30 Days, MG 01/31/22 Furosemide (Furosemide) 20 Mg Tab, 2 TAB PO DAILY 01/31/22 Home Meds Home medications reviewed. Current Medications Current Medications Medications (Trade) Dose Ordered Sig/[place] Route PRN Reason Start Time Stop Time Status Last Admin Sodium Chloride (Saline Lock Ns) 10 ml Q8HR IV 09/17/24 14:00 Acetaminophen/ Hydrocodone Bitart ([place] 5/325MG Tab) 1 tab Q4HP PRN PO MODERATE PAIN (4-6 PAIN SCALE) 09/17/24 09:15 Ondansetron HCl (Zofran) 4 mg Q4HP PRN IV NAUSEA / VOMITING 09/17/24 09:15 Docusate Sodium (Colace Capsule) 100 mg BIDPRN PRN PO FOR CONSTIPATION 09/17/24 09:15 Acetaminophen (Tylenol Tablet) 650 mg Q6HP PRN PO PAIN SCALE 1-3 OR TEMP>100.4 09/17/24 09:15 Nitroglycerin (Ntrostat Sublingual) 0.4 mg Q5MINP PRN SL FOR CHEST PAIN 09/17/24 09:15 09/17/24 10:55 DC Morphine Sulfate 2 mg Q30M PRN IV FOR CHEST PAIN 09/17/24 09:15 Apixaban (Eliquis) 5 mg BID@0800,2000 PO 09/17/24 20:00 09/17/24 10:51 DC Isosorbide Dinitrate (Isordil Tablet) 20 mg BID PO 09/17/24 10:00 09/17/24 10:50 Clonidine HCl (Catapres Tablet) 0.2 mg BID PO 09/17/24 10:00 09/17/24 10:55 DC Albuterol (Ventolin Medneb) 2.5 mg Q6HWA NEB 09/17/24 12:00 Ipratropium [place] (Atrovent Medneb) 0.5 mg Q6HWA NEB 09/17/24 12:00 Methylprednisolone Sodium Succinate (Solu Medrol) 40 mg BID IV 09/17/24 10:00 09/17/24 09:45 DC Methylprednisolone Sodium Succinate (Solu Medrol) 40 mg Q12HR IV 09/17/24 22:00 Carvedilol (Coreg Tablet) 6.25 mg Q12HR PO 09/17/24 22:00 UNV Furosemide (Lasix Injection) 20 mg DAILY IV 09/18/24 10:00 UNV Review of Systems Constitutional: No symptom reported Ears, Nose, & Throat: No symptom reported Eyes: No symptom reported Neurological: No symptoms reported Pulmonary/Respiratory: SOB Cardiovascular: Chest pain Gastrointestinal: No symptom reported Genitourinary: No symptom reported Musculoskeletal: No symptom reported Skin: No symptom reported Psychiatric: No symptom reported Endocrine: No symptom reported Hemotologic/Lymphatic: No symptom reported Vital Signs Vital Signs Date Time Temp Pulse Resp B/P (MAP) Pulse Ox O2 Delivery O2 Flow Rate FiO2 09/17/24 10:50 139/95 09/17/24 10:02 84 09/17/24 09:55 98.3 20 96 98.3 09/17/24 08:00 Nasal Cannula* 2 28 Physical Exam General Appearance: Cooperative. Well developed. Morbidly obese. [id number] respiratory distress Head Exam: Normal inspection Neck Exam: Normal inspection. Non-tender. Normal alignment Pulmonary/Respiratory: Chest non-tender. Crackles to bilateral breath sounds Cardiovascular/Chest: Regular rate and rhythm. S1, S2. Sinus rhythm with PACs. No murmurs. Positive JVD. Peripheral Pulses: 2+ Radial (R). 2+ Radial (L). 2+ Pedal (R). 2+ Pedal (L) Abdominal Exam: Normal bowel sounds. Soft. Nontender. No hepatospenomegaly. No masses Ankle Exam: Positive ankle edema Lower extremities: Positive lower extremity edema Neuro/Mental Status: A&O x4. Coherent Thoughts/Psych: Normal thought pattern. Appropriate mood and affect. Good judgement and insight Appearance: Yqxa-kr-jotguysa respiratory distress Skin Exam: Normal inspection. Normal color. Warm. Dry Labs/Diagnostic Data Labs Test 09/17/24 10:13 09/17/24 07:00 Range/Units Troponin I High Sensitivity 927 *H </=54 ng/L White Blood Count 9.0 4.4-10.8 10^3/uL Red Blood Count 4.32 L 4.5-5.90 10^6/uL Hemoglobin 13.6 13.5-17.5 g/dL Hematocrit 40.5 L 41.0-53.0 % Mean Corpuscular Volume 93.8 80.0-100.0 fL Mean Corpuscular Hemoglobin 31.6 28.0-32.0 pg Mean Corpuscular Hemoglobin Concent 33.7 32.0-36.0 g/dL Red Cell Distribution Width 14.3 11.8-14.3 % Platelet Count 266 140-450 10^3/uL Mean Platelet Volume 7.6 6.9-10.8 fL Neutrophils (%) (Auto) 67.2 37.0-80.0 % Lymphocytes (%) (Auto) 13.7 10.0-50.0 % Monocytes (%) (Auto) 15.8 H 0.0-12.0 % Eosinophils (%) (Auto) 2.5 0.0-7.0 % Basophils (%) (Auto) 0.8 0.0-2.0 % Neutrophils # (Auto) 6.1 1.6-8.6 10 ^3/uL Lymphocytes # (Auto) 1.2 0.4-5.4 10 ^3/uL Monocytes # (Auto) 1.4 H 0-1.3 10 ^3/uL Eosinophils # (Auto) 0.2 0-0.8 10 ^3/uL Basophils # (Auto) 0.1 0-0.2 10 ^3/uL Nucleated Red Blood Cells 0.0 % Sodium Level 145 136-145 mmol/L Potassium Level 3.9 3.5-5.1 mmol/L Chloride Level 108 H 98-107 mmol/L Carbon Dioxide Level 27 20-31 mmol/L Anion Gap 10 5-15 Blood Urea Nitrogen 36 H 9-23 mg/dL Creatinine 2.19 H 0.700-1.30 mg/dL Glomerular Filtration Rate Calc 32 >90 mL/min BUN/Creatinine Ratio 16.4 10.0-20.0 Serum Glucose 138 H 74-106 mg/dL Calcium Level 10.0 8.7-10.4 mg/dL B-Type Natriuretic Peptide 200.65 0-100 pg/mL Assessment NSTEMI rule out progressive coronary artery disease Coronary artery disease status post PTCA x2 MAURICE Acute on chronic decompensated HFpEF Pulmonary hypertension Paroxysmal atrial fibrillation, stage III, now NSR (on amiodarone/Eliquis) Secondary hypercoagulable state Ofd-aaaqnrt-jhhbyukhf diabetes mellitus EMMY on CKD stage IIIB Nicotine dependence Morbid obesity Plan/Recommendation (Dr. Lott) Scheduled for a coronary angiogram with cardiac catheterization on 09/19/2024. All risks and benefits of the procedure were discussed with patient including high risk for ИРИНА. He agrees to proceed with intervention. Patient took Eliquis this morning and was medicated with therapeutic Lovenox upon arrival placing him at a high-risk for bleeding. Twelve lead electrocardiogram revealed no ST elevation. We will proceed further cardiac evaluation with a transthoracic echocardiogram, serial troponin levels, and daily twelve lead electrocardiograms. NTG held secondary to sildenafil use. Amiodarone held given prolonged QTc, currently NSR. Continue therapeutic Lovenox, dual- antiplatelet therapy, beta-cj and stating. Continue ACS protocol. Monitor ECG changes and notify. Obtain Nephrology consultation. Further orders per clinical course. Thank you for allowing us to participate in this patient's care. Please call if you have any questions or concerns. This medical document was created using an electronic medical record system with voice recognition software and computerized dictation system. Although this document has been carefully reviewed, there might still be some phonetic and typographical errors. Occasional wrong-word or ``sound-alike substitutions may have occurred due to the inherent limitations of voice recognition software. These areas are purely typographical due to imperfections of the software programs and do not reflect any compromise in the patient's medical care. Please read the chart carefully and recognize, using context, where these substitutions have occurred. Plan discussed with: Patient, Other NYHA Physical activity limitations: Class3(Marked) ordinary (activity causes symtoms) Date of Service: September 17, 2024 Billing Provider: JAYRO HAR[facility]Y Cardiology Common Codes: 51831-[id number] CARE 30-74 MIN TALAT ROMEROIT Marv DO 09/17/242143: Date Seen: September 17, 2024 Allergies: Coded Allergies: NO KNOWN ALLERGIES (Unverified , 01/31/22) Home Meds Active Scripts Amiodarone HCl (Amiodarone HCl) 200 Mg Tab, 200 MG PO BID for 30 Days, #60 TAB Prov:JOSE MEDINA MD 02/02/22 Ergocalciferol (VITAMIN D 33251 UNIT) 50,000 [place], [address] UNIT PO Q7D for 7 Days, #7 CAP Prov:JOSE MEDINA MD 02/02/22 Apixaban Base (ELIQUIS) 5 Mg Tab, 5 MG PO BID@0800,2000 for 30 Days, #60 TAB Prov:JOSE MEDINA MD 02/02/22 Reported Medications Carvedilol (Carvedilol) 25 Mg Tab, 25 MG PO Q12HR, MG 09/17/24 Hydralazine Hcl (Hydralazine Hcl) 50 Mg Tab, 50 MG PO, MG 09/17/24 Spironolactone (Spironolactone) 25 Mg Tab, 25 MG PO, TAB 09/17/24 Clonidine Hydrochloride (Clonidine Hcl) 0.2 Mg Tab, 1 TAB PO BID 09/17/24 Bumetanide (Bumetanide) 2 Mg Tab, 1 TAB PO DAILY 09/17/24 Isosorbide Dinitrate (Isosorbide Dinitrate) 20 Mg Tab, 20 MG PO BID, MG 02/01/22 Minoxidil (Loniten) 2.5 Mg Tb, 2 TAB PO BID, #180 TAB 1 Refill 01/31/22 Carvedilol (Carvedilol) 12.5 Mg Tab, 1 TAB PO BID 01/31/22 Potassium Chloride (K-Tab) 20 Meq Tab, 1 TAB PO DAILY 01/31/22 Discontinued Reported Medications Clonidine Hydrochloride (Clonidine Hcl) 0.2 Mg/24 Hr Dis, 0.2 MG PO BID for 30 Days, MG 01/31/22 Furosemide (Furosemide) 20 Mg Tab, 2 TAB PO DAILY 01/31/22 Plan/Recommendation Patient was discussed with TAVIA Raymundo. I agree with her Assessment and Plan, which was formulated with me. Date of Service: September 17, 2024 Billing Provider: GRACIE ROMERO DO Cardiology Common Codes: [id number] INP/OBS CARE (High) JAYRO HARVEY September 17, 2024 11:49 GARCIE ROMERO DO September 17, 2024 21:44
[2024-09-17] MEDS: ACETYLCYSTEINE ORAL for CIN 20%(200MG/ML) 4ML PO ONE (12:22)
[2024-09-17 13:18] LABS: Sodium Urine 84 mmol/L (40-220)
[2024-09-17 13:25] LABS: Creatinine, Urine 32.27 mg/dL (30.0-125.0); Protein, Urine < 6.0 mg/dL (1-14); Urine Protein/Creatinine Ratio 0.19
[2024-09-17] MEDS: SODIUM CHLOR 0.9% PF (SALINE LOCK) 10ML VIAL/SYR IV SCH (13:49)
--- NOTE | 2024-09-17 14:02 | DVH ---
US KIDNEY HISTORY: khurram COMPARISON: None TECHNIQUE: Transverse and longitudinal grayscale and color doppler images were obtained of the kidney s and bladder. FINDINGS: Right kidney: Size: 10.9 cm Cortical thickness: Normal Echogenicity: Normal Stones: None Masses: None Hydronephrosis: None Ureters: Not well visualized. Other: None Left kidney: Size: 9.9 cm Cortical thickness: Normal Echogenicity: Normal Stones: None Masses: None Hydronephrosis: None Ureters: Not well visualized. Other: None Bladder: Normal Other: None. IMPRESSION: Normal renal ultrasound.
[2024-09-17 14:08] LABS: INR 1.25 (0.9-1.15); Partial Thromboplastin Time 35.9 SEC (24.5-34.5)
--- NOTE | 2024-09-17 14:52 | DVHCONRES ---
Date Seen: September 17, 2024 Resident Creating Document: BRENNEN ISBELL RESIDENT History of Present Illness Mr Irwin this is a 64-year-old male with PMH congestive heart failure, CAD status post 2 2018, AFib on Eliquis, pulmonary hypertension on sildenafil, COPD, CKD, hypertension, hyperlipidemia presented to the ER with a chief complaint of shortness of breath for the past month along with lower extremity swelling. Patient reports experiencing shortness of breath on exertion, orthopnea, for the past month, and he was recently hospitalized at another facility for pneumonia and was discharged on steroids, antibiotics and nebulized treatments. He said that he felt better until last week when he again started to develop lower extremity swelling and shortness of breaths, especially on exertion. Patient sleeps in a recliner. Associated symptoms include cough which is productive, patient does not know the color, otherwise denies fevers/chills/nausea/vomiting/chest pain during my evaluation. On arrival to the ER, patient was vitally stable but requiring 2 L nasal cannula supplementation, BUN/creatinine 36/2.19. BNP 200. Troponin 865 up trending to 927. Hemoglobin A1c 7, patient denied history of diabetes. Chest x-ray showed pulmonary vascular congestion with cardiomegaly. Cardiology was consulted and started Coreg, Lasix, isosorbide mononitrate. Nephrology was consulted by Cardiology given the need of left heart catheterization PMH:congestive heart failure, CAD status post 2 2018, AFib on Eliquis, pulmonary hypertension on sildenafil, COPD, CKD, hypertension, hyperlipidemia Social history: Smokes half a pack a day for the past more than 30 years, denies drinking or illicit drug use Home medications: Bumex 4 mg daily, Eliquis, albuterol, nebulized treatments, denies taking Lasix Patient seen and examined in the ER. Has bilateral expiratory wheezing and crackles. 3+ bilateral pitting edema. Started Lasix 40 mg IV b.i.d. Allergies: Coded Allergies: NO KNOWN ALLERGIES (Unverified , 01/31/22) Home Meds Active Scripts Amiodarone HCl (Amiodarone HCl) 200 Mg Tab, 200 MG PO BID for 30 Days, #60 TAB Prov:JOSE MEDINA MD 02/02/22 Ergocalciferol (VITAMIN D 26786 UNIT) 50,[place], [address] UNIT PO Q7D for 7 Days, #7 CAP Prov:JOSE MEDINA MD 02/02/22 Apixaban Base (ELIQUIS) 5 Mg Tab, 5 MG PO BID@0800,2000 for 30 Days, #60 TAB Prov:JOSE MEDINA MD 02/02/22 Reported Medications Clonidine Hydrochloride (Clonidine Hcl) 0.2 Mg Tab, 1 TAB PO BID 09/17/24 Bumetanide (Bumetanide) 2 Mg Tab, 1 TAB PO DAILY 09/17/24 Isosorbide Dinitrate (Isosorbide Dinitrate) 20 Mg Tab, 20 MG PO BID, MG 02/01/22 Minoxidil (Loniten) 2.5 Mg Tb, 2 TAB PO BID, #180 TAB 1 Refill 01/31/22 Carvedilol (Carvedilol) 12.5 Mg Tab, 1 TAB PO BID 01/31/22 Potassium Chloride (K-Tab) 20 Meq Tab, 1 TAB PO DAILY 01/31/22 Discontinued Reported Medications Clonidine Hydrochloride (Clonidine Hcl) 0.2 Mg/24 Hr Dis, 0.2 MG PO BID for 30 Days, MG 01/31/22 Furosemide (Furosemide) 20 Mg Tab, 2 TAB PO DAILY 01/31/22 Current Medications Current Medications Medications (Trade) Dose Ordered Sig/[place] Route PRN Reason Start Time Stop Time Status Last Admin Sodium Chloride (Saline Lock Ns) 10 ml Q8HR IV 09/17/24 14:00 09/17/24 13:49 Acetaminophen/ Hydrocodone Bitart ([place] 5/325MG Tab) 1 tab Q4HP PRN PO MODERATE PAIN (4-6 PAIN SCALE) 09/17/24 09:15 Ondansetron HCl (Zofran) 4 mg Q4HP PRN IV NAUSEA / VOMITING 09/17/24 09:15 Docusate Sodium (Colace Capsule) 100 mg BIDPRN PRN PO FOR CONSTIPATION 09/17/24 09:15 Acetaminophen (Tylenol Tablet) 650 mg Q6HP PRN PO PAIN SCALE 1-3 OR TEMP>100.4 09/17/24 09:15 Nitroglycerin (Ntrostat Sublingual) 0.4 mg Q5MINP PRN SL FOR CHEST PAIN 09/17/24 09:15 09/17/24 10:55 DC Morphine Sulfate 2 mg Q30M PRN IV FOR CHEST PAIN 09/17/24 09:15 Apixaban (Eliquis) 5 mg BID@0800,2000 PO 09/17/24 20:00 09/17/24 10:51 DC Isosorbide Dinitrate (Isordil Tablet) 20 mg BID PO 09/17/24 10:00 09/17/24 10:50 Clonidine HCl (Catapres Tablet) 0.2 mg BID PO 09/17/24 10:00 09/17/24 10:55 DC Albuterol (Ventolin Medneb) 2.5 mg Q6HWA NEB 09/17/24 12:00 09/17/24 11:14 Ipratropium [place] (Atrovent Medneb) 0.5 mg Q6HWA NEB 09/17/24 12:00 09/17/24 11:14 Methylprednisolone Sodium Succinate (Solu Medrol) 40 mg BID IV 09/17/24 10:00 09/17/24 09:45 DC Methylprednisolone Sodium Succinate (Solu Medrol) 40 mg Q12HR IV 09/17/24 22:00 Carvedilol (Coreg Tablet) 6.25 mg Q12HR PO 09/17/24 22:00 Furosemide (Lasix Injection) 20 mg DAILY IV 09/18/24 10:00 Aspirin 81 mg DAILY PO 09/18/24 10:00 Clopidogrel Bisulfate (Plavix) 75 mg DAILY PO 09/18/24 10:00 Enoxaparin Sodium (Lovenox) 120 mg Q12HR SC 09/17/24 22:00 Atorvastatin Calcium (Lipitor) 40 mg HS PO 09/17/24 22:00 Review of Systems Eyes: No Pain, No Vision change, No Conjunctivae inflammation, No Eyelid inflammation, No Other, No Redness ENT: No Ear pain, No Ear discharge, No Nose pain, No Nose discharge, No Nose congestion, No Mouth pain, No Mouth swelling, No Throat pain, No Throat swelling, No Other Cardiovascular: No Chest Pain, No Palpitations, No Orthopnea, No PND, No Edema, No Lt Headedness, No Other Respiratory: Reports cough, shortness of breaths, shortness of breaths on exertion. Gastrointestinal: No Nausea, No Vomiting, No Abdominal Pain, No Diarrhea, No Constipation, No Melena, No Hematochezia, No Other Genitourinary: No Dysuria, No Frequency, No Incontinence, No Hematuria, No Retention, No Other Musculoskeletal: No other, No neck pain, No shoulder pain, No arm pain, No back pain, No hand pain, No leg pain, No foot pain Skin: No Rash, No Lesions, No Jaundice, No Bruising, No Other Vital Signs Vital Signs Date Time Temp Pulse Resp B/P (MAP) Pulse Ox O2 Delivery O2 Flow Rate FiO2 09/17/24 12:00 78 09/17/24 11:28 138/82 09/17/24 11:20 18 100 09/17/24 11:14 Nasal Cannula 2.0 09/17/24 11:14 28 09/17/24 09:55 98.3 98.3 Physical Exam Obese male patient lying comfortably in the bed, A&O x3. General: Obese, afebrile, palor, mucosae are moist Cardiovascular: Heart rate is irregular but rate is controlled, No murmurs, gallops or rubs. No JVD elevation. Bilateral 3+ pitting edema Respiratory: Bilateral expiratory wheezing heard on auscultation, saturating 95 on 2 L NC supplementation Abdomen: Soft, nontender, nondistended, hyperactive bowel sounds, no rebound tenderness, no organomegaly, no masses Genitourinary: Deferred MSK/skin: Mobilizes 4 limbs. Skin is dry and warm Neurological: No motor, no sensitive deficits, normal speech. Pupils are isocoric and reactive. Psych/Mental Status: A/Ox3 Labs/Diagnostic Data Labs Test 09/17/24 13:41 09/17/24 11:02 09/17/24 10:13 09/17/24 09:15 Range/Units Prothrombin Time 13.0 H 9.3-11.8 sec Prothrombin Time INR 1.25 H 0.9-1.15 Activated Partial Thromboplast Time 35.9 H 24.5-34.5 SEC Troponin I High Sensitivity 712 *H </=54 ng/L Blood Gas Specimen Type Arterial Blood Gas Sample Site Right radial Blood Gas Patient Temperature 37.0 Arterial Blood Date Drawn [id number] Arterial Blood pH 7.438 7.350-7.450 Arterial Blood Partial Pressure CO2 33.2 L 35.0-48.0 mmHg Arterial Blood Partial Pressure O2 67.3 L 83.0-108.0 mmHg Arterial Blood HCO3 21.9 21.0-28.0 mmol/L Arterial Blood Oxygen Saturation 92.9 L 94.0-98.0 % Arterial Blood Base Excess -1.5 -2.0-3.0 mmol/L Arterial Blood Oxyhemoglobin 91.7 L 94.0-98.0 % Arterial Blood Carboxyhemoglobin 0.8 0.5-1.5 % Arterial Blood Methemoglobin 0.5 0.0-1.5 % Brandon Test Yes Blood Gas Total Hemoglobin 13.90 13.5-17.5 g/dL Blood Gas Modality Nasal cannula FiO2 % 28.0 Magnesium Level 2.2 1.6-2.6 mg/dL Triglycerides Level 69 < 150 mg/dL Cholesterol Level 92 < 200 mg/dL LDL Cholesterol 39 < 100 mg/dL HDL Cholesterol 39 L 40-59 mg/dL Urine Color Colorless Yellow Urine Clarity Clear Clear Urine pH 5.0 5.0-9.0 Urine Specific [place] 1.007 1.001-1.035 Urine Protein Negative Negative Urine Ketones Negative Negative Urine Blood Negative Negative /uL Urine Nitrite Negative Negative Urine Bilirubin Negative Negative Urine Urobilinogen Normal Negative mg/dL Urine Leukocyte Esterase Negative Negative /uL Urine RBC <1 0 - 3 /hpf Urine Microscopic WBC 0-3 /HPF Urine Squamous Epithelial Cells Few <5 /hpf Urine Bacteria None seen None Seen /hpf Urine Hyaline Casts Few 0 - 2 /lpf Urine Creatinine 32.27 30.0-125.0 mg/dL Urine Protein/Creatinine Ratio 0.19 Urine Sodium 84 40-220 mmol/L Urine Glucose Normal Normal mg/dL Urine Total Protein < 6.0 1-14 mg/dL Test 09/17/24 08:08 09/17/24 07:00 Range/Units Thyroid Stimulating Hormone (TSH) 1.06 0.55-4.78 uIU/mL White Blood Count 9.0 4.4-10.8 10^3/uL Red Blood Count 4.32 L 4.5-5.90 10^6/uL Hemoglobin 13.6 13.5-17.5 g/dL Hematocrit 40.5 L 41.0-53.0 % Mean Corpuscular Volume 93.8 80.0-100.0 fL Mean Corpuscular Hemoglobin 31.6 28.0-32.0 pg Mean Corpuscular Hemoglobin Concent 33.7 32.0-36.0 g/dL Red Cell Distribution Width 14.3 11.8-14.3 % Platelet Count 266 140-450 10^3/uL Mean Platelet Volume 7.6 6.9-10.8 fL Neutrophils (%) (Auto) 67.2 37.0-80.0 % Lymphocytes (%) (Auto) 13.7 10.0-50.0 % Monocytes (%) (Auto) 15.8 H 0.0-12.0 % Eosinophils (%) (Auto) 2.5 0.0-7.0 % Basophils (%) (Auto) 0.8 0.0-2.0 % Neutrophils # (Auto) 6.1 1.6-8.6 10 ^3/uL Lymphocytes # (Auto) 1.2 0.4-5.4 10 ^3/uL Monocytes # (Auto) 1.4 H 0-1.3 10 ^3/uL Eosinophils # (Auto) 0.2 0-0.8 10 ^3/uL Basophils # (Auto) 0.1 0-0.2 10 ^3/uL Nucleated Red Blood Cells 0.0 % Sodium Level 145 136-145 mmol/L Potassium Level 3.9 3.5-5.1 mmol/L Chloride Level 108 H 98-107 mmol/L Carbon Dioxide Level 27 20-31 mmol/L Anion Gap 10 5-15 Blood Urea Nitrogen 36 H 9-23 mg/dL Creatinine 2.19 H 0.700-1.30 mg/dL Glomerular Filtration Rate Calc 32 >90 mL/min BUN/Creatinine Ratio 16.4 10.0-20.0 Serum Glucose 138 H 74-106 mg/dL Hemoglobin A1c 7.0 H <5.7 % A1C Calcium Level 10.0 8.7-10.4 mg/dL Phosphorus Level 5.2 H 2.4-5.1 mg/dL B-Type Natriuretic Peptide 200.65 0-100 pg/mL Vitamin D 25-Hydroxy 43.2 30.0-100 ng/mL Assessment Acute kidney injury, likely hemodynamic superimposed on CKD Chronic kidney disease IIIb follows Dr. Braun Acute on chronic congestive heart failure exacerbation Acute hypoxic respiratory failure secondary to above NSTEMI Diabetes mellitus-new onset-hemoglobin A1c 7 Paroxysmal atrial fibrillation COPD History of CAD with 2 MAURICE 2018 History pulmonary hypertension Plan: Started Lasix 40 mg IV b.i.d. Continue with Coreg, isosorbide mononitrate, aspirin and atorvastatin Follow up with the echocardiogram Further management per Cardiology Plan discussed with patient in which all questions have been answered Case discussed with Dr. Boss Addendum Patient seen and examined, plan discussed with resident. Agree with above, we will follow closely Plan for cardiac catheterization noted patient mild to moderate risk for contrast induced Acute kidney injury informed patient of off all the risks We will follow renal function closely post cardiac catheterization Advised to stop using NSAIDs Plan discussed with: Patient BRENNEN ISBELL RESIDENT September 17, 2024 14:52 GLENN BOSS MD September 17, 2024 18:32
[2024-09-17] MEDS: FUROSEMIDE 40 MG/4 ML VIAL IV ONE (16:56)
[2024-09-17] MEDS ORDERED: APIXABAN 5 MG TAB PO SCH (20:00)
[2024-09-17] MEDS ORDERED: SPIR25TA8 PO (20:15)
[2024-09-17] MEDS ORDERED: HYDR50TA47 PO (20:19)
[2024-09-17] MEDS ORDERED: CARV25TA55 PO (20:19)
[2024-09-17] MEDS: methylPREDNISolone SOD SUCC 40 MG/ML VL IV SCH (21:36)
[2024-09-17] MEDS: ENOXAPARIN SOD 120 MG/0.8 ML SYRINGE SC SCH (21:36)
[2024-09-18] VITALS (16 sets, daily range): BP systolic 124–153; BP diastolic 79–99; PULSE 65–150; RESP 16–18; TEMP 97.4–97.8; O2SAT 93–100
[2024-09-18] MEDS: ATORVASTATIN 20 MG TAB PO SCH (00:24)
[2024-09-18] MEDS: CARVEDILOL 3.125 MG TAB PO SCH (00:25)
[2024-09-18] MEDS ORDERED: ASPI1TAB20 PO (00:52)
[2024-09-18] MEDS ORDERED: BACL20TA PO (00:53)
[2024-09-18] MEDS: LABETALOL HCL 20 MG/4 ML VL IV ONE (03:52)
[2024-09-18] MEDS: FUROSEMIDE 40 MG/4 ML VIAL IV SCH (06:22)
[2024-09-18 06:36] LABS: Basophils # (auto) 0 10 ^3/uL (0-0.2); Basophils % (auto) 0.3 % (0.0-2.0); Eosinophils # (auto) 0 10 ^3/uL (0-0.8); Hematocrit 39.6 % (41.0-53.0); Hemoglobin 13.6 g/dL (13.5-17.5); Lymphocytes # (auto) 0.8 10 ^3/uL (0.4-5.4); Lymphocytes % (auto) 7.5 % (10.0-50.0); Mean Corpuscular Hemoglobin 32.2 pg (28.0-32.0); Mean Corpuscular Hgb Conc. 34.3 g/dL (32.0-36.0); Mean Corpuscular Volume 93.6 fL (80.0-100.0); Monocytes # (auto) 0.4 10 ^3/uL (0-1.3); Monocytes % (auto) 3.8 % (0.0-12.0); Neutrophils # (auto) 9.4 10 ^3/uL (1.6-8.6); Neutrophils % (auto) 88.4 % (37.0-80.0); Nucleated Red Blood Cells % 0.1 %; Platelet Count (auto) 265 10^3/uL (140-450); Red Blood Cells 4.23 10^6/uL (4.5-5.90); White Blood Cell 10.7 10^3/uL (4.4-10.8)
[2024-09-18 07:00] LABS: Albumin 4.2 g/dL (3.2-4.8); Alkaline Phosphatase 51 U/L (46-116); Anion Gap 13 (5-15); Aspartate Aminotransferase 23 U/L (13-40); BUN/Creatinine Ratio 21.7 (10.0-20.0); Calcium 9.2 mg/dL (8.7-10.4); Carbon Dioxide 24 mmol/L (20-31); Potassium 4.1 mmol/L (3.5-5.1); Sodium 144 mmol/L (136-145); Total Protein 6.1 g/dL (5.7-8.2)
[2024-09-18 07:01] LABS: Bilirubin, Total 0.4 mg/dL (0.2-1.0)
[2024-09-18 07:10] LABS: Alanine Aminotransferase 42 U/L (7-40); Blood Urea Nitrogen 47 mg/dL (9-23); Chloride 107 mmol/L (98-107); Glucose 263 mg/dL (74-106)
--- NOTE | 2024-09-18 08:46 | CONS ---
Pharmacy Clinical Information: CQM HF (missing antihyperglycemic drug). Patient's current hemoglobin A1c is 7%, per ADA 2024 guidelines, the goal A1c for patients with diabetes is less than 7%. Considering the A1c is borderline at goal, the decision to add an antihyperglycemic drug versus lowering the A1c through lifestyle modifications would be a patient-physician discussion and done at the discretion of the physician. PATRICIA FIGUEREDO PHARMACIST September 18, 2024 08:46
[2024-09-18] MEDS: CLOPIDOGREL BISULFATE 75 MG TAB PO SCH (09:35)
[2024-09-18] MEDS: ASPirin 81 mg TAB PO SCH (09:35)
--- NOTE | 2024-09-18 09:46 | DVHPN2 ---
Consult Progress Note Date Seen: September 18, 2024 Subjective Patient reports: Feels better Review of Systems: CVS:Normal, RESPIRATORY:Normal, NEURO:Normal Objective vital signs Vital Sign Date Time Temp Pulse Resp B/P (MAP) Pulse Ox O2 Delivery O2 Flow Rate FiO2 09/18/24 09:37 139 138/87 09/18/24 09:00 97.5 17 93 97.5 09/18/24 06:53 Room Air 09/18/24 06:53 0 21 Total Intake and Output 09/17/24 09/17/24 09/18/24 15:00 23:00 07:00 Intake Total 350 ml 0 ml Balance 350 ml 0 ml medications Current Medications Medications Dose Ordered Sig/[place]ford Route Start Time Stop Time Status Last Admin Dose Admin Sodium Chloride 10 ml Q8HR IV 09/17/24 14:00 09/18/24 06:22 10 ML Acetaminophen/ Hydrocodone Bitart 1 tab Q4HP PRN PO 09/17/24 09:15 Ondansetron HCl 4 mg Q4HP PRN IV 09/17/24 09:15 Docusate Sodium 100 mg BIDPRN PRN PO 09/17/24 09:15 Acetaminophen 650 mg Q6HP PRN PO 09/17/24 09:15 Morphine Sulfate 2 mg Q30M PRN IV 09/17/24 09:15 Isosorbide Dinitrate 20 mg BID PO 09/17/24 10:00 09/18/24 09:36 20 MG Albuterol 2.5 mg Q6HWA [facility] 09/17/24 12:00 09/18/24 06:53 2.5 MG Ipratropium [place] 0.5 mg Q6HWA [facility] 09/17/24 12:00 09/18/24 06:53 0.5 MG Methylprednisolone Sodium Succinate 40 mg Q12HR IV 09/17/24 22:00 09/18/24 09:35 40 MG Carvedilol 6.25 mg Q12HR PO 09/17/24 22:00 09/18/24 09:37 6.25 MG Aspirin 81 mg DAILY PO 09/18/24 10:00 09/18/24 09:35 81 MG Clopidogrel Bisulfate 75 mg DAILY PO 09/18/24 10:00 09/18/24 09:35 75 MG Enoxaparin Sodium 120 mg Q12HR SC 09/17/24 22:00 09/17/24 21:36 120 MG Atorvastatin Calcium 40 mg HS PO 09/17/24 22:00 09/18/24 00:24 40 MG Furosemide 40 mg BIDD IV 09/18/24 06:00 09/18/24 06:22 40 MG Examination: LUNGS:Abnormal (Diminished), CVS:Abnormal (A-fib with RVR), NEURO:Normal laboratory and microbiology Laboratory Tests 09/18/24 06:08 Test 09/18/24 06:08 Range/Units Serum Glucose 263 #H 74-106 mg/dL Problem List/Assessment/Plan Problem List/Assessment/Plan NSTEMI rule out progressive coronary artery disease Coronary artery disease status post PTCA x2 MAURICE Acute on chronic decompensated HFpEF Pulmonary hypertension Paroxysmal atrial fibrillation, stage III, now with RVR (on amiodarone/Eliquis) Secondary hypercoagulable state Kri-pdyiprd-nbgmroqjq diabetes mellitus EMMY on CKD stage IIIB Nicotine dependence Morbid obesity Plan/Recommendation (Dr. Velásquez) Scheduled for a coronary angiogram with cardiac catheterization on 09/19/2024. Nephrology consultation obtained given high-risk for ИРИНА. Twelve lead electrocardiograms revealed no acute ST-T segment changes (QTc now <500 ms). Initiate amiodarone drip per pharmacy protocol. We will proceed further cardiac evaluation with a transthoracic echocardiogram and daily twelve lead electrocardiograms. NTG held secondary to sildenafil use. Continue therapeutic Lovenox, dual-antiplatelet therapy, beta-cj and stating. Continue ACS protocol. Monitor ECG changes and notify. Further orders per clinical course. Thank you for allowing us to participate in this patient's care. Please call if you have any questions or concerns. This medical document was created using an electronic medical record system with voice recognition software and computerized dictation system. Although this document has been carefully reviewed, there might still be some phonetic and typographical errors. Occasional wrong-word or ``sound-alike substitutions may have occurred due to the inherent limitations of voice recognition software. These areas are purely typographical due to imperfections of the software programs and do not reflect any compromise in the patient's medical care. Please read the chart carefully and recognize, using context, where these substitutions have occurred. Plan discussed with: Patient, Other Date of Service: September 18, 2024 Billing Provider: JAYRO HARVEY [employer]QU[employer]MENT INST[employer]ER Cardiology Common Codes: [id number] HOSP CARE(JAYRO Toro [facility] September 18, 2024 09:46
[2024-09-18] MEDS ORDERED: FUROSEMIDE 20 MG/2 ML VIAL IV SCH (10:00)
--- NOTE | 2024-09-18 12:17 | DVH ---
EXAM: XY CHEST PORTABLE CLINICAL HISTORY: CHF TECHNIQUE: Single AP view of the chest WID: COMPARISON: XY CHEST PORTABLE on DOS: 09/17/24 FINDINGS: Lines and tubes: None Chest: Mild cardiomegaly. Significant improvement in pulmonary vascular congestion. Calcified plaque projec ts over the aortic arch. No pleural effusion, pneumothorax, or consolidation. The osseous structures are grossly intact. IMPRESSION: Improvement in pulmonary edema.
[2024-09-18] MEDS: AMIODARONE BOLUS KIT 100 ML IV ONE (12:49)
[2024-09-18] MEDS: AMIODARONE 360mg/200mL PREMIX 200 ML IV ONE (13:04)
--- NOTE | 2024-09-18 13:30 | DVHSR ---
APPROVED REPORT EXAM: Two-dimensional and M-mode echocardiogram with Doppler and color Doppler. Blood Pressure: 149/92 mmHg INDICATION EF RISK FACTORS Height: 69, Weight: 253 DIMENSIONS LVDd5.1 (3.8-5.7cm)LA (2D)4.6 (1.9-4.0cm)Aortic Root3.6 (2.0-3.7cm) LVDs3.5 (2.5-4.0cm)LA (MM) (1.9-4.0cm)Aortic Cusp Exc1.6 (1.5-2.0cm) EF (%) 60.0 (55-70%)Rt. Atrium4.0 (1.9-4.0cm)Asc. Aorta cm Mitral Valve MitralMitral Stenosis E wave1.24m/sMV Mean GR.mmHg A wave0.32m/sMV Peak GR.72mmHg E/A ratio3.92D MVAcm2 DECEL [id number] 1/2 Timems Aortic Valve Aortic ValveAortic Stenosis V10.90m/Addison Mean GR.5mmHg V21.57m/Addison Peak GR.10mmHg LVOT Diameter1.9 (1.8-2.4cm)Doppler AVA1.62cm2 Pulmonic Valve V20.95m/s Tricuspid Valve TR Velocity2.90m/s [id number] Other Information Technically limited study due to patient sitting straight up during exam. Conclusion Sinus rhythm. Left atrial enlargement. Concentric LVH. Valves are normal. EF of 50% with normal RV function. Moderate MR. Moderate TR. No pericardial effusion masses or vegetations.
--- NOTE | 2024-09-18 13:59 | ECG ---
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
[2024-09-18] MEDS ORDERED: AMIODARONE 360mg/200mL PREMIX 200 ML IV SCH (16:00)
--- NOTE | 2024-09-18 18:18 | DVHPN2 ---
Subjective no chest pain this morning Changes from previous H/P or p: No Changes Eyes: No Pain, No Vision change, No Conjunctivae inflammation, No Eyelid inflammation, No Other, No Redness ENT: No Ear pain, No Ear discharge, No Nose pain, No Nose discharge, No Nose congestion, No Mouth pain, No Mouth swelling, No Throat pain, No Throat swelling, No Other Cardiovascular: No Chest Pain, No Palpitations, No Orthopnea, No Paroxysmal Noc. Dyspnea, No Edema, No Lt Headedness, No Other Respiratory: No Cough, No Dry; Shortness of breath, SOB with excertion, W heezing; No Hemoptysis, No Pleuritic Pain, No Sputum, No Other Gastrointestinal: No Nausea, No Vomiting, No Abdominal Pain, No Diarrhea, No Constipation, No Melena, No Hematochezia, No Other Genitourinary: No Dysuria, No Frequency, No Incontinence, No Hematuria, No Retention, No Other Musculoskeletal: No other, No neck pain, No shoulder pain, No arm pain, No back pain, No hand pain, No leg pain, No foot pain Skin: No Rash, No Lesions, No Jaundice, No Bruising, No Other Objective Vitals Vital Signs Date Time Temp Pulse Resp B/P (MAP) Pulse Ox O2 Delivery O2 Flow Rate FiO2 09/18/24 17:00 97.6 83 17 139/84 (102) 98 97.6 09/18/24 10:00 Room Air* 0 21 Intake/Output Intake and Output 09/18/24 07:00 Intake Total 350 ml Balance 350 ml Intake Oral 0 ml IV Total 350 ml General Appearance: Alert, Oriented X3 Cardiovascular: Regular rate, Normal S1, Normal S2 Medications Current Medications Medications Dose Ordered Sig/[place] Route Start Time Stop Time Status Last Admin Dose Admin Sodium Chloride 10 ml Q8HR IV 09/17/24 14:00 09/18/24 14:00 10 ML Acetaminophen/ Hydrocodone Bitart 1 tab Q4HP PRN PO 09/17/24 09:15 Ondansetron HCl 4 mg Q4HP PRN IV 09/17/24 09:15 Docusate Sodium 100 mg BIDPRN PRN PO 09/17/24 09:15 Acetaminophen 650 mg Q6HP PRN PO 09/17/24 09:15 Morphine Sulfate 2 mg Q30M PRN IV 09/17/24 09:15 Isosorbide Dinitrate 20 mg BID PO 09/17/24 10:00 09/18/24 09:36 20 MG Albuterol 2.5 mg Q6HWA [facility] 09/17/24 12:00 09/18/24 06:53 2.5 MG Ipratropium [place] 0.5 mg Q6HWA [facility] 09/17/24 12:00 09/18/24 06:53 0.5 MG Methylprednisolone Sodium Succinate 40 mg Q12HR IV 09/17/24 22:00 09/18/24 09:35 40 MG Carvedilol 6.25 mg Q12HR PO 09/17/24 22:00 09/18/24 09:37 6.25 MG Aspirin 81 mg DAILY PO 09/18/24 10:00 09/18/24 09:35 81 MG Clopidogrel Bisulfate 75 mg DAILY PO 09/18/24 10:00 09/18/24 09:35 75 MG Enoxaparin Sodium 120 mg Q12HR SC 09/17/24 22:00 09/17/24 21:36 120 MG Atorvastatin Calcium 40 mg HS PO 09/17/24 22:00 09/18/24 00:24 40 MG Furosemide 40 mg BIDD IV 09/18/24 06:00 09/18/24 06:22 40 MG Laboratory Results Laboratory Tests 09/18/24 06:08 Chemistry Test 09/18/24 06:08 Albumin 4.2 g/dL (3.2-4.8) Calcium Level 9.2 mg/dL (8.7-10.4) Total Protein 6.1 g/dL (5.7-8.2) LFT Test 09/18/24 06:08 Alanine Aminotransferase (ALT) 42 U/L (7-40) H Alkaline Phosphatase 51 U/L (46-116) Aspartate Amino Transferase (AST) 23 U/L (13-40) Total Bilirubin 0.4 mg/dL (0.2-1.0) Urinalysis Test 09/17/24 09:15 Urine Color Colorless (Yellow) Urine Clarity Clear (Clear) Urine pH 5.0 (5.0-9.0) Urine Specific [place] 1.007 (1.001-1.035) Urine Protein Negative (Negative) Urine Ketones Negative (Negative) Urine Blood Negative /uL (Negative) Urine Nitrite Negative (Negative) Urine Bilirubin Negative (Negative) Urine Urobilinogen Normal mg/dL (Negative) Urine Leukocyte Esterase Negative /uL (Negative) Urine RBC <1 /hpf (0 - 3) Urine Microscopic WBC /HPF (0-3) Urine Squamous Epithelial Cells Few /hpf (<5) Urine Bacteria None seen /hpf (None Seen) Urine Hyaline Casts Few /lpf (0 - 2) Urine Creatinine 32.27 mg/dL (30.0-125.0) Urine Protein/Creatinine Ratio 0.19 Urine Sodium 84 mmol/L (40-220) Urine Glucose Normal mg/dL (Normal) Urine Total Protein < 6.0 mg/dL (1-14) Assessment/Plan Assessment/Plan Pneumonia, NSTEMI, CHF, Chronic kidney disease, Hypertension, COPD, Hyperlipidemia, Going for cath tomorrow Continue lovenox therapeutic dual-antiplatelet therapy, beta-cj and stating Plan discussed with: Patient Date of Service: September 18, 2024 Billing Provider: JACQUELYN JOSEPH MD Common Visit Codes: [id number] INP/OBS CARE(HIGH) JACQUELYN JOSEPH MD September 18, 2024 18:18
--- NOTE | 2024-09-18 18:25 | DVHPN2 ---
Progress Note Date Seen: September 18, 2024 Resident Creating Document: BRENNEN ISBELL RESIDENT Medical Necessity Reason Pt with a Central, PICC or Fol: No Subjective Review of Systems Mr Irwin this is a 64-year-old male with PMH congestive heart failure, CAD status post 2 2018, AFib on Eliquis, pulmonary hypertension on sildenafil, COPD, CKD, hypertension, hyperlipidemia presented to the ER with a chief complaint of shortness of breath for the past month along with lower extremity swelling. Patient reports experiencing shortness of breath on exertion, orthopnea, for the past month, and he was recently hospitalized at another facility for pneumonia and was discharged on steroids, antibiotics and nebulized treatments. He said that he felt better until last week when he again started to develop lower extremity swelling and shortness of breaths, especially on exertion. Patient sleeps in a recliner. Associated symptoms include cough which is productive, patient does not know the color, otherwise denies fevers/chills/nausea/vomiting/chest pain during my evaluation. On arrival to the ER, patient was vitally stable but requiring 2 L nasal cannula supplementation, BUN/creatinine 36/2.19. BNP 200. Troponin 865 up trending to 927. Hemoglobin A1c 7, patient denied history of diabetes. Chest x-ray showed pulmonary vascular congestion with cardiomegaly. Cardiology was consulted and started Coreg, Lasix, isosorbide mononitrate. Nephrology was consulted by Cardiology given the need of left heart catheterization PMH:congestive heart failure, CAD status post 2 2018, AFib on Eliquis, pulmonary hypertension on sildenafil, COPD, CKD, hypertension, hyperlipidemia Social history: Smokes half a pack a day for the past more than 30 years, denies drinking or illicit drug use Home medications: Bumex 4 mg daily, Eliquis, albuterol, nebulized treatments, denies taking Lasix 09/17-Patient seen and examined in the ER. Has bilateral expiratory wheezing and crackles. 3+ bilateral pitting edema. Started Lasix 40 mg IV b.i.d.. 09/18-patient seen and examined. Objective vital signs Vital Sign Date Time Temp Pulse Resp B/P (MAP) Pulse Ox O2 Delivery O2 Flow Rate FiO2 09/18/24 17:00 97.6 83 17 139/84 (102) 98 97.6 09/18/24 10:00 Room Air* 0 21 Total Intake and Output 09/17/24 09/17/24 09/18/24 15:00 23:00 07:00 Intake Total 350 ml 0 ml Balance 350 ml 0 ml medications Current Medications Medications Dose Ordered Sig/[place] Route Start Time Stop Time Status Last Admin Dose Admin Sodium Chloride 10 ml Q8HR IV 09/17/24 14:00 09/18/24 14:00 10 ML Acetaminophen/ Hydrocodone Bitart 1 tab Q4HP PRN PO 09/17/24 09:15 Ondansetron HCl 4 mg Q4HP PRN IV 09/17/24 09:15 Docusate Sodium 100 mg BIDPRN PRN PO 09/17/24 09:15 Acetaminophen 650 mg Q6HP PRN PO 09/17/24 09:15 Morphine Sulfate 2 mg Q30M PRN IV 09/17/24 09:15 Isosorbide Dinitrate 20 mg BID PO 09/17/24 10:00 09/18/24 09:36 20 MG Albuterol 2.5 mg Q6HWA [facility] 09/17/24 12:00 09/18/24 06:53 2.5 MG Ipratropium [place] 0.5 mg Q6HWA [facility] 09/17/24 12:00 09/18/24 06:53 0.5 MG Methylprednisolone Sodium Succinate 40 mg Q12HR IV 09/17/24 22:00 09/18/24 09:35 40 MG Carvedilol 6.25 mg Q12HR PO 09/17/24 22:00 09/18/24 09:37 6.25 MG Aspirin 81 mg DAILY PO 09/18/24 10:00 09/18/24 09:35 81 MG Clopidogrel Bisulfate 75 mg DAILY PO 09/18/24 10:00 09/18/24 09:35 75 MG Enoxaparin Sodium 120 mg Q12HR SC 09/17/24 22:00 09/17/24 21:36 120 MG Atorvastatin Calcium 40 mg HS PO 09/17/24 22:00 09/18/24 00:24 40 MG Furosemide 40 mg BIDD IV 09/18/24 06:00 09/18/24 06:22 40 MG Examination Obese male patient lying comfortably in the bed, A&O x3. General: Obese, afebrile, palor, mucosae are moist Cardiovascular: Heart rate is irregular but rate is controlled, No murmurs, gallops or rubs. No JVD elevation. Bilateral 3+ pitting edema Respiratory: Bilateral expiratory wheezing heard on auscultation, saturating 95 on 2 L NC supplementation Abdomen: Soft, nontender, nondistended, hyperactive bowel sounds, no rebound tenderness, no organomegaly, no masses Genitourinary: Deferred MSK/skin: Mobilizes 4 limbs. Skin is dry and warm Neurological: No motor, no sensitive deficits, normal speech. Pupils are isocoric and reactive. Psych/Mental Status: A/Ox3 laboratory and microbiology Laboratory Tests 09/18/24 06:08 Test 09/18/24 06:08 Range/Units Serum Glucose 263 #H 74-106 mg/dL Labs and/or images reviewed: Labs reviewed by me, Image(s) reviewed by me Problem List/Assessment/Plan Problem List/Assessment/Plan Acute kidney injury, likely hemodynamic superimposed on CKD Chronic kidney disease IIIb follows Dr. Braun Acute on chronic congestive heart failure exacerbation Acute hypoxic respiratory failure secondary to above NSTEMI Diabetes mellitus-new onset-hemoglobin A1c 7 Paroxysmal atrial fibrillation with RVR COPD History of CAD with 2 MAURICE 2019 History pulmonary hypertension FENA 3.9% Plan: Patient is planned for cardiac catheterization 09/19, Patient is at zduj-ne-beekiaio risk for contrast induced EMMY, continue Lasix 40 mg IV b.i.d, strict I&Os Creatinine and GFR stable. Renal ultrasound unremarkable Patient was started on IV amiodarone drip. Continue with Coreg, isosorbide mononitrate, aspirin and atorvastatin Follow up with the echocardiogram Troponin downtrending Further management per Cardiology Advised patient to stop using NSAIDs We will follow renal function post cardiac catheterization Plan discussed with patient in which all questions have been answered Case discussed with Dr. Boss Addendum Patient seen and examined, plan discussed with resident. Agree with above, we will follow closely Defer decision for cardiac catheterization to Cardiology and pt We will monitor renal function if cardiac catheterization planned [id number] risk for ИРИНА Plan discussed with: Patient My Orders My Orders Orders - BRENNEN ISBELL Procedure Category Date Status Time Strict I & O ANDRZEJ 09/18/24 In Process 09:42 BRENNEN ISBELL September 18, 2024 18:25 GLENN BOSS MD September 18, 2024 19:43
[2024-09-18] MEDS: AMIODARONE 360mg/200mL PREMIX 200 ML IV SCH (18:39)
[2024-09-19] VITALS (19 sets, daily range): BP systolic 121–162; BP diastolic 73–124; PULSE 66–125; RESP 16–25; TEMP 97.2–98; O2SAT 93–100
[2024-09-19] MEDS: HYDROcodone-ACET 5/325MG TAB PO PRN (05:42)
[2024-09-19 07:08] LABS: Albumin 4.8 g/dL (3.2-4.8); Alkaline Phosphatase 53 U/L (46-116); Anion Gap 12 (5-15); Aspartate Aminotransferase 30 U/L (13-40); BUN/Creatinine Ratio 22.1 (10.0-20.0); Basophils # (auto) 0 10 ^3/uL (0-0.2); Basophils % (auto) 0.1 % (0.0-2.0); Bilirubin, Total 0.3 mg/dL (0.2-1.0); Calcium 9.4 mg/dL (8.7-10.4); Carbon Dioxide 25 mmol/L (20-31); Chloride 105 mmol/L (98-107); Eosinophils # (auto) 0 10 ^3/uL (0-0.8); Hematocrit 43.8 % (41.0-53.0); Hemoglobin 14.4 g/dL (13.5-17.5); Lymphocytes # (auto) 0.8 10 ^3/uL (0.4-5.4); Lymphocytes % (auto) 6.2 % (10.0-50.0); Mean Corpuscular Hemoglobin 30.9 pg (28.0-32.0); Mean Corpuscular Hgb Conc. 32.9 g/dL (32.0-36.0); Monocytes # (auto) 0.4 10 ^3/uL (0-1.3); Monocytes % (auto) 3.1 % (0.0-12.0); Neutrophils # (auto) 12.1 10 ^3/uL (1.6-8.6); Neutrophils % (auto) 90.6 % (37.0-80.0); Platelet Count (auto) 300 10^3/uL (140-450); Potassium 3.8 mmol/L (3.5-5.1); Red Blood Cells 4.66 10^6/uL (4.5-5.90); Red Cell Distribution Width 14.2 % (11.8-14.3); Sodium 142 mmol/L (136-145); Total Protein 7.1 g/dL (5.7-8.2); White Blood Cell 13.4 10^3/uL (4.4-10.8)
[2024-09-19 07:09] LABS: Alanine Aminotransferase 50 U/L (7-40); Blood Urea Nitrogen 51 mg/dL (9-23); Glucose 217 mg/dL (74-106)
[2024-09-19 07:21] LABS: INR 1.24 (0.9-1.15); Partial Thromboplastin Time 33.3 SEC (24.5-34.5); Prothrombin Time 12.9 sec (9.3-11.8)
--- NOTE | 2024-09-19 08:18 | ECG ---
[facility] Test Date: 2024-09-18 Test Time: 02:41:24 Pat Name: UMAIR PAGAN Department: Room: 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
[2024-09-19 10:24] LABS: Hepatitis B Surface Antigen Negative (Negative); Hepatitis C Antibody Negative (Negative)
[2024-09-19] MEDS: IODIXANOL 320MG/ML 100ML BTL IV ONE (11:52)
[2024-09-19] MEDS: HEPARIN IN NS 1000Units/500mL 1,500 ML ONE (11:53)
[2024-09-19] MEDS: VERAPAMIL 2.5MG/ML INJ 2ML VIAL IV ONE (11:57)
[2024-09-19] MEDS: fentaNYL CITRATE 100 MCG/2 ML VL ONE (11:57)
[2024-09-19] MEDS: HEPARIN SODIUM (PORCINE) 5000 UNITS/ML 1ML VIAL ONE (11:57)
[2024-09-19] MEDS: MIDAZOLAM HCL 2MG/2ML 2ml VIAL (1mg/ml) ONE (11:57)
[2024-09-19] MEDS: ANGIOMAX 250 MG VIAL IV ONE (11:57)
[2024-09-19] MEDS: SODIUM CHL 0.9% 0 ML ONE (11:58)
[2024-09-19] MEDS: LIDOCAINE 2%HCL (LOCAL ANESTH.) INJ 20ML MDV ONE (11:58)
[2024-09-19] MEDS: NITROGLYCERIN 5MG/ML 10ML VIAL IV ONE (12:07)
--- NOTE | 2024-09-19 13:04 | DVHOP2 ---
Operative Report - 2 Report Details Date: 09/19/24 Preop Diagnosis: CAD Postop Diagnosis: CAD Surgeon: Israel Biswas MD Anesthesiologist: Conscious sedation Anesthesia: Mac, Local Consent: The patient was informed of the risks and benefits of the procedure. These include but are not limited to complications of anesthesia, postoperative infection, incomplete relief of symptoms, recurrence of symptoms, damage to blood vessels, nerves and tendons, deep venous thrombosis, pulmonary embolism and possible need for repeat surgery in the future. Complications: No complications Findings: Mild CAD, elevated left ventricular end-diastolic pressure at rest. Indications for Surgery: Chest pain. Positive troponins. Name of Procedure Performed Left heart catheterization bilateral cine coronary angiography. Left ventriculography. Procedure Details Procedure Details: Prior local anesthesia with 2% lidocaine to the right wrist and full informed consent obtained patient was prepped and draped in usual fashion followed by placement of a six [place] sheath into the radial artery through which a Wilfrido catheter was used for ventriculography and a three five EBU guide was used for evaluation of the right left coronary ostia. No complications Hemodynamics: Aortic blood pressure was 130/90. End-diastolic pressure was 20. There was no gradient across the aortic valve on pullback Coronary anatomy: RCA is a large vessel a mild 30-40% stenosis at its mid section. PDA and posterolateral branches are normal. Left main is large and normal. Left anterior descending is a large vessel it is normal in its proximal mid and distal segments. PDA and posterolateral branches are normal. Circumflex is large with two marginals free of significant disease. The 1st marginal has been stented. Ventriculography in the PETERS projection shows an EF of 50%. Impression: Elevated left ventricular end-diastolic pressure was with normal ejection fraction. No significant CAD progression with only mild disease of the RCA Recommendations: Medical therapy as wires continue risk factor modifications. Blood pressure control. Condition Good Disposition Still a Patient Date of Service: September 19, 2024 Billing Provider: ISRAEL BISWAS Sr., MD Cardiology Common Codes: 17861-[id number] INP/OBS CARE (High) Cardiology Procedure Codes: 97399-QVCC ADD CORONARY BRANCH, 97507-GMMR HEART CATH W/INTRA INJ ISRAEL BISWAS Sr., MD September 19, 2024 13:04
[2024-09-19] MEDS: AMIODARONE HCL 200 MG TAB PO ONE (13:38)
--- NOTE | 2024-09-19 16:27 | DVHPN2 ---
Progress Note Date Seen: September 19, 2024 Resident Creating Document: BRENNEN ISBELL RESIDENT Medical Necessity Reason Pt with a Central, PICC or Fol: No Subjective Review of Systems Mr Irwin this is a 64-year-old male with PMH congestive heart failure, CAD status post 2 2018, AFib on Eliquis, pulmonary hypertension on sildenafil, COPD, CKD, hypertension, hyperlipidemia presented to the ER with a chief complaint of shortness of breath for the past month along with lower extremity swelling. Patient reports experiencing shortness of breath on exertion, orthopnea, for the past month, and he was recently hospitalized at another facility for pneumonia and was discharged on steroids, antibiotics and nebulized treatments. He said that he felt better until last week when he again started to develop lower extremity swelling and shortness of breaths, especially on exertion. Patient sleeps in a recliner. Associated symptoms include cough which is productive, patient does not know the color, otherwise denies fevers/chills/nausea/vomiting/chest pain during my evaluation. On arrival to the ER, patient was vitally stable but requiring 2 L nasal cannula supplementation, BUN/creatinine 36/2.19. BNP 200. Troponin 865 up trending to 927. Hemoglobin A1c 7, patient denied history of diabetes. Chest x-ray showed pulmonary vascular congestion with cardiomegaly. Cardiology was consulted and started Coreg, Lasix, isosorbide mononitrate. Nephrology was consulted by Cardiology given the need of left heart catheterization PMH:congestive heart failure, CAD status post 2 2018, AFib on Eliquis, pulmonary hypertension on sildenafil, COPD, CKD, hypertension, hyperlipidemia Social history: Smokes half a pack a day for the past more than 30 years, denies drinking or illicit drug use Home medications: Bumex 4 mg daily, Eliquis, albuterol, nebulized treatments, denies taking Lasix 09/17-Patient seen and examined in the ER. Has bilateral expiratory wheezing and crackles. 3+ bilateral pitting edema. Started Lasix 40 mg IV b.i.d.. 09/18-patient seen and examined. 09/19-patient undergoing cardiac catheterization. Holding Lasix, ISMAEL and arbs at this time. We will resume tomorrow. Recommend holding steroids Objective vital signs Vital Sign Date Time Temp Pulse Resp B/P (MAP) Pulse Ox O2 Delivery O2 Flow Rate FiO2 09/19/24 14:50 97.6 86 154/101 (118) 96 97.6 09/19/24 14:10 17 09/19/24 10:00 Room Air* 0 21 Total Intake and Output 09/18/24 09/18/24 09/19/24 15:00 23:00 07:00 Intake Total 480 ml 720 ml Output Total 540 ml 700 ml Balance -60 ml 20 ml medications Current Medications Medications Dose Ordered Sig/[place] Route Start Time Stop Time Status Last Admin Dose Admin Sodium Chloride 10 ml Q8HR IV 09/17/24 14:00 09/19/24 14:00 10 ML Acetaminophen/ Hydrocodone Bitart 1 tab Q4HP PRN PO 09/17/24 09:15 09/19/24 05:42 1 TAB Ondansetron HCl 4 mg Q4HP PRN IV 09/17/24 09:15 Docusate Sodium 100 mg BIDPRN PRN PO 09/17/24 09:15 Acetaminophen 650 mg Q6HP PRN PO 09/17/24 09:15 Morphine Sulfate 2 mg Q30M PRN IV 09/17/24 09:15 Isosorbide Dinitrate 20 mg BID PO 09/17/24 10:00 09/19/24 09:08 20 MG Albuterol 2.5 mg Q6HWA [facility] 09/17/24 12:00 09/19/24 07:32 2.5 MG Ipratropium [place] 0.5 mg Q6HWA [facility] 09/17/24 12:00 09/19/24 07:32 0.5 MG Methylprednisolone Sodium Succinate 40 mg Q12HR IV 09/17/24 22:00 09/19/24 09:08 40 MG Carvedilol 6.25 mg Q12HR PO 09/17/24 22:00 09/19/24 09:09 6.25 MG Aspirin 81 mg DAILY PO 09/18/24 10:00 09/19/24 09:09 81 MG Clopidogrel Bisulfate 75 mg DAILY PO 09/18/24 10:00 09/19/24 09:08 75 MG Atorvastatin Calcium 40 mg HS PO 09/17/24 22:00 09/18/24 21:37 40 MG Amiodarone HCl 200 mg Q12HR PO 09/19/24 22:00 Examination Obese male patient lying comfortably in the bed, A&O x3. General: Obese, afebrile, palor, mucosae are moist Cardiovascular: Heart rate is irregular but rate is controlled, No murmurs, gallops or rubs. No JVD elevation. Bilateral 3+ pitting edema Respiratory: Bilateral expiratory wheezing heard on auscultation, saturating 95 on 2 L NC supplementation Abdomen: Soft, nontender, nondistended, hyperactive bowel sounds, no rebound tenderness, no organomegaly, no masses Genitourinary: Deferred MSK/skin: Mobilizes 4 limbs. Skin is dry and warm Neurological: No motor, no sensitive deficits, normal speech. Pupils are isocoric and reactive. Psych/Mental Status: A/Ox3 laboratory and microbiology Laboratory Tests 09/19/24 05:17 Test 09/19/24 05:17 Range/Units Serum Glucose 217 H 74-106 mg/dL Labs and/or images reviewed: Labs reviewed by me, Image(s) reviewed by me Problem List/Assessment/Plan Problem List/Assessment/Plan Acute kidney injury, likely hemodynamic superimposed on CKD Chronic kidney disease IIIb follows Dr. Braun Acute on chronic congestive heart failure exacerbation status post left heart catheterization 09/19 Acute hypoxic respiratory failure secondary to above NSTEMI Diabetes mellitus-new onset-hemoglobin A1c 7 Paroxysmal atrial fibrillation with RVR COPD History of CAD with 2 2018 History pulmonary hypertension FENA 3.9% Plan: Patient underwent cardiac catheterization 09/19. Holding Lasix at this time. We will resume tomorrow depending on kidney function. Recommend discontinuing steroids. Continue strict I&Os Renal ultrasound unremarkable Patient was started on IV amiodarone drip. Continue with Coreg, isosorbide mononitrate, aspirin and atorvastatin Follow up with the echocardiogram Troponin downtrending Further management per Cardiology Advised patient to stop using NSAIDs We will follow renal function post cardiac catheterization Plan discussed with patient in which all questions have been answered Case discussed with Dr. Boss Addendum Patient seen and examined, plan discussed with resident. Agree with above, we will follow closely Plan discussed with: Patient BRENNEN ISBELL RESIDENT September 19, 2024 16:27 GLENN BOSS MD September 19, 2024 20:46
--- NOTE | 2024-09-19 17:22 | DVHPN2 ---
Subjective no chest pain this morning Changes from previous H/P or p: No Changes Eyes: No Pain, No Vision change, No Conjunctivae inflammation, No Eyelid inflammation, No Other, No Redness ENT: No Ear pain, No Ear discharge, No Nose pain, No Nose discharge, No Nose congestion, No Mouth pain, No Mouth swelling, No Throat pain, No Throat swelling, No Other Cardiovascular: No Chest Pain, No Palpitations, No Orthopnea, No Paroxysmal Noc. Dyspnea, No Edema, No Lt Headedness, No Other Respiratory: No Cough, No Dry; Shortness of breath, SOB with excertion, W heezing; No Hemoptysis, No Pleuritic Pain, No Sputum, No Other Gastrointestinal: No Nausea, No Vomiting, No Abdominal Pain, No Diarrhea, No Constipation, No Melena, No Hematochezia, No Other Genitourinary: No Dysuria, No Frequency, No Incontinence, No Hematuria, No Retention, No Other Musculoskeletal: No other, No neck pain, No shoulder pain, No arm pain, No back pain, No hand pain, No leg pain, No foot pain Skin: No Rash, No Lesions, No Jaundice, No Bruising, No Other Objective Vitals Vital Signs Date Time Temp Pulse Resp B/P (MAP) Pulse Ox O2 Delivery O2 Flow Rate FiO2 09/19/24 14:50 97.6 86 154/101 (118) 96 97.6 09/19/24 14:10 17 09/19/24 10:00 Room Air* 0 21 Intake/Output Intake and Output 09/19/24 07:00 Intake Total 1200 ml Output Total 1240 ml Balance -40 ml Intake Oral 1200 ml Output Urine Total 1240 ml General Appearance: Alert, Oriented X3 Cardiovascular: Regular rate, Normal S1, Normal S2 Medications Current Medications Medications Dose Ordered Sig/[place] Route Start Time Stop Time Status Last Admin Dose Admin Sodium Chloride 10 ml Q8HR IV 09/17/24 14:00 09/19/24 14:00 10 ML Acetaminophen/ Hydrocodone Bitart 1 tab Q4HP PRN PO 09/17/24 09:15 09/19/24 05:42 1 TAB Ondansetron HCl 4 mg Q4HP PRN IV 09/17/24 09:15 Docusate Sodium 100 mg BIDPRN PRN PO 09/17/24 09:15 Acetaminophen 650 mg Q6HP PRN PO 09/17/24 09:15 Morphine Sulfate 2 mg Q30M PRN IV 09/17/24 09:15 Isosorbide Dinitrate 20 mg BID PO 09/17/24 10:00 09/19/24 09:08 20 MG Albuterol 2.5 mg Q6HWA [facility] 09/17/24 12:00 09/19/24 07:32 2.5 MG Ipratropium [place] 0.5 mg Q6HWA [facility] 09/17/24 12:00 09/19/24 07:32 0.5 MG Methylprednisolone Sodium Succinate 40 mg Q12HR IV 09/17/24 22:00 09/19/24 09:08 40 MG Carvedilol 6.25 mg Q12HR PO 09/17/24 22:00 09/19/24 09:09 6.25 MG Aspirin 81 mg DAILY PO 09/18/24 10:00 09/19/24 09:09 81 MG Clopidogrel Bisulfate 75 mg DAILY PO 09/18/24 10:00 09/19/24 09:08 75 MG Atorvastatin Calcium 40 mg HS PO 09/17/24 22:00 09/18/24 21:37 40 MG Amiodarone HCl 200 mg Q12HR PO 09/19/24 22:00 Laboratory Results Laboratory Tests 09/19/24 05:17 Chemistry Test 09/19/24 05:17 Albumin 4.8 g/dL (3.2-4.8) Calcium Level 9.4 mg/dL (8.7-10.4) Total Protein 7.1 g/dL (5.7-8.2) Coagulation Test 09/19/24 05:17 Prothrombin Time 12.9 sec (9.3-11.8) H Prothrombin Time INR 1.24 (0.9-1.15) H Activated Partial Thromboplast Time 33.3 SEC (24.5-34.5) LFT Test 09/19/24 05:17 Alanine Aminotransferase (ALT) 50 U/L (7-40) H Alkaline Phosphatase 53 U/L (46-116) Aspartate Amino Transferase (AST) 30 U/L (13-40) Total Bilirubin 0.3 mg/dL (0.2-1.0) Urinalysis Test 09/17/24 09:15 Urine Color Colorless (Yellow) Urine Clarity Clear (Clear) Urine pH 5.0 (5.0-9.0) Urine Specific [place] 1.007 (1.001-1.035) Urine Protein Negative (Negative) Urine Ketones Negative (Negative) Urine Blood Negative /uL (Negative) Urine Nitrite Negative (Negative) Urine Bilirubin Negative (Negative) Urine Urobilinogen Normal mg/dL (Negative) Urine Leukocyte Esterase Negative /uL (Negative) Urine RBC <1 /hpf (0 - 3) Urine Microscopic WBC /HPF (0-3) Urine Squamous Epithelial Cells Few /hpf (<5) Urine Bacteria None seen /hpf (None Seen) Urine Hyaline Casts Few /lpf (0 - 2) Urine Creatinine 32.27 mg/dL (30.0-125.0) Urine Protein/Creatinine Ratio 0.19 Urine Sodium 84 mmol/L (40-220) Urine Glucose Normal mg/dL (Normal) Urine Total Protein < 6.0 mg/dL (1-14) Assessment/Plan Assessment/Plan Pneumonia, NSTEMI, CHF, Chronic kidney disease, Hypertension, COPD, Hyperlipidemia, Going for cath today Continue lovenox therapeutic dual-antiplatelet therapy, beta-cj and stating Plan discussed with: Patient Date of Service: September 19, 2024 Billing Provider: JACQUELYN JOSEPH MD Common Visit Codes: [id number] INP/OBS CARE(HIGH) JACQUELYN JOSEPH MD September 19, 2024 17:22
--- NOTE | 2024-09-19 18:57 | DVHPN2 ---
Consult Progress Note Date Seen: September 19, 2024 Subjective Review of Systems: CVS:Normal, RESPIRATORY:Normal, NEURO:Normal Objective vital signs Vital Sign Date Time Temp Pulse Resp B/P (MAP) Pulse Ox O2 Delivery O2 Flow Rate FiO2 09/19/24 18:06 145/109 (121) 09/19/24 17:00 97.9 66 20 96 97.9 09/19/24 10:00 Room Air* 0 21 Total Intake and Output 09/18/24 09/18/24 09/19/24 15:00 23:00 07:00 Intake Total 480 ml 720 ml Output Total 540 ml 700 ml Balance -60 ml 20 ml medications Current Medications Medications Dose Ordered Sig/[place] Route Start Time Stop Time Status Last Admin Dose Admin Sodium Chloride 10 ml Q8HR IV 09/17/24 14:00 09/19/24 14:00 10 ML Acetaminophen/ Hydrocodone Bitart 1 tab Q4HP PRN PO 09/17/24 09:15 09/19/24 05:42 1 TAB Ondansetron HCl 4 mg Q4HP PRN IV 09/17/24 09:15 Docusate Sodium 100 mg BIDPRN PRN PO 09/17/24 09:15 Acetaminophen 650 mg Q6HP PRN PO 09/17/24 09:15 Morphine Sulfate 2 mg Q30M PRN IV 09/17/24 09:15 Isosorbide Dinitrate 20 mg BID PO 09/17/24 10:00 09/19/24 09:08 20 MG Albuterol 2.5 mg Q6HWA [facility] 09/17/24 12:00 09/19/24 07:32 2.5 MG Ipratropium [place] 0.5 mg Q6HWA [facility] 09/17/24 12:00 09/19/24 07:32 0.5 MG Methylprednisolone Sodium Succinate 40 mg Q12HR IV 09/17/24 22:00 09/19/24 09:08 40 MG Carvedilol 6.25 mg Q12HR PO 09/17/24 22:00 09/19/24 09:09 6.25 MG Aspirin 81 mg DAILY PO 09/18/24 10:00 09/19/24 09:09 81 MG Clopidogrel Bisulfate 75 mg DAILY PO 09/18/24 10:00 09/19/24 09:08 75 MG Atorvastatin Calcium 40 mg HS PO 09/17/24 22:00 09/18/24 21:37 40 MG Amiodarone HCl 200 mg Q12HR PO 09/19/24 22:00 Examination: LUNGS:Normal, CVS:Normal (A-fib low 100s bpm), NEURO:Normal laboratory and microbiology Laboratory Tests 09/19/24 05:17 Test 09/19/24 05:17 Range/Units Serum Glucose 217 H 74-106 mg/dL Problem List/Assessment/Plan Problem List/Assessment/Plan NSTEMI, progressive coronary artery disease ruled out Coronary artery disease status post PTCA x2 MAURICE Acute on chronic decompensated HFpEF Pulmonary hypertension Paroxysmal atrial fibrillation, stage III, now with RVR (on amiodarone/Eliquis) Secondary hypercoagulable state [id number] diabetes mellitus EMMY on CKD stage IIIB Nicotine dependence Morbid obesity Plan/Recommendation (Dr. Biswas) The patient underwent a cardiac catheterization and coronary angiogram without catheter based intervention given no significant CAD progression with only mild disease of the RCA. He also underwent a transthoracic echocardiogram revealing an LVEF of 50% with normal RV function, moderate TR/MR, and left atrial enlargement. Recommendations are to continue Coreg, amiodarone, single- antiplatelet therapy, and lipid lowering agent. Given worsening renal function and risk for ИРИНА, we recommend follow-up on renal function for at least two days prior to discharge. Continue nephrology recommendations. 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 There is no further cardiac workup indicated at this time. Kindly call if in need to continue following up. Thank you for allowing us to participate in this patient's care. This medical document was created using an electronic medical record system with voice recognition software and computerized dictation system. Although this document has been carefully reviewed, there might still be some phonetic and typographical errors. Occasional wrong-word or ``sound-alike substitutions may have occurred due to the inherent limitations of voice recognition software. These areas are purely typographical due to imperfections of the software programs and do not reflect any compromise in the patient's medical care. Please read the chart carefully and recognize, using context, where these substitutions have occurred. Plan discussed with: Patient, Other Date of Service: September 19, 2024 Billing Provider: JAYRO HARVEY [facility] Cardiology Common Codes: [id number] CARE([facility] JAYRO HARVEY [facility] September 19, 2024 18:57
[2024-09-19] MEDS: dilTIAZem 25 MG/5 ML VIAL IV ONE (20:44)
[2024-09-19] MEDS: APIXABAN 5 MG TAB PO SCH (21:30)
[2024-09-19] MEDS: AMIODARONE HCL 200 MG TAB PO SCH (21:30)
[2024-09-19] MEDS: CARVEDILOL 12.5 MG TAB PO SCH (21:31)
[2024-09-20] VITALS (12 sets, daily range): BP systolic 129–162; BP diastolic 81–111; PULSE 63–133; RESP 16–18; TEMP 97–98.3; O2SAT 93–99
[2024-09-20] MEDS: MELATONIN 5 MG TAB PO SCH (01:16)
[2024-09-20 16:59] LABS: Chloride 107 mmol/L (98-107); Sodium 143 mmol/L (136-145)
[2024-09-20 17:00] LABS: Anion Gap 11 (5-15); Calcium 9.6 mg/dL (8.7-10.4); Carbon Dioxide 25 mmol/L (20-31)
[2024-09-20 17:05] LABS: BUN/Creatinine Ratio 24.7 (10.0-20.0)
[2024-09-20 17:12] LABS: Blood Urea Nitrogen 70 mg/dL (9-23); Glucose 298 mg/dL (74-106)
--- NOTE | 2024-09-20 17:45 | DVHPN2 ---
Subjective no chest pain this morning Changes from previous H/P or p: No Changes Eyes: No Pain, No Vision change, No Conjunctivae inflammation, No Eyelid inflammation, No Other, No Redness ENT: No Ear pain, No Ear discharge, No Nose pain, No Nose discharge, No Nose congestion, No Mouth pain, No Mouth swelling, No Throat pain, No Throat swelling, No Other Cardiovascular: No Chest Pain, No Palpitations, No Orthopnea, No Paroxysmal Noc. Dyspnea, No Edema, No Lt Headedness, No Other Respiratory: No Cough, No Dry; Shortness of breath, SOB with excertion, W heezing; No Hemoptysis, No Pleuritic Pain, No Sputum, No Other Gastrointestinal: No Nausea, No Vomiting, No Abdominal Pain, No Diarrhea, No Constipation, No Melena, No Hematochezia, No Other Genitourinary: No Dysuria, No Frequency, No Incontinence, No Hematuria, No Retention, No Other Musculoskeletal: No other, No neck pain, No shoulder pain, No arm pain, No back pain, No hand pain, No leg pain, No foot pain Skin: No Rash, No Lesions, No Jaundice, No Bruising, No Other Objective Vitals Vital Signs Date Time Temp Pulse Resp B/P (MAP) Pulse Ox O2 Delivery O2 Flow Rate FiO2 09/20/24 17:00 97.6 72 17 129/81 (97) 98 97.6 09/20/24 10:01 Room Air* 0 21 Intake/Output Intake and Output 09/20/24 07:00 Intake Total 916.66 ml Balance 916.66 ml Intake Oral 900 ml IV Total 16.66 ml # Voids 8 # Bowel Movements 1 General Appearance: Alert, Oriented X3 Cardiovascular: Regular rate, Normal S1, Normal S2 Medications Current Medications Medications Dose Ordered Sig/[place] Route Start Time Stop Time Status Last Admin Dose Admin Sodium Chloride 10 ml Q8HR IV 09/17/24 14:00 09/20/24 14:00 10 ML Acetaminophen/ Hydrocodone Bitart 1 tab Q4HP PRN PO 09/17/24 09:15 09/19/24 05:42 1 TAB Ondansetron HCl 4 mg Q4HP PRN IV 09/17/24 09:15 Docusate Sodium 100 mg BIDPRN PRN PO 09/17/24 09:15 Acetaminophen 650 mg Q6HP PRN PO 09/17/24 09:15 Morphine Sulfate 2 mg Q30M PRN IV 09/17/24 09:15 Isosorbide Dinitrate 20 mg BID PO 09/17/24 10:00 09/20/24 09:06 20 MG Albuterol 2.5 mg Q6HWA [facility] 09/17/24 12:00 09/19/24 07:32 2.5 MG Ipratropium [place] 0.5 mg Q6HWA [facility] 09/17/24 12:00 09/19/24 07:32 0.5 MG Methylprednisolone Sodium Succinate 40 mg Q12HR IV 09/17/24 22:00 09/20/24 09:09 40 MG Aspirin 81 mg DAILY PO 09/18/24 10:00 09/20/24 09:08 81 MG Clopidogrel Bisulfate 75 mg DAILY PO 09/18/24 10:00 09/20/24 09:06 75 MG Atorvastatin Calcium 40 mg HS PO 09/17/24 22:00 09/19/24 21:29 40 MG Amiodarone HCl 200 mg Q12HR PO 09/19/24 22:00 09/20/24 09:08 200 MG Carvedilol 12.5 mg Q12HR PO 09/19/24 22:00 09/20/24 09:07 12.5 MG Apixaban 5 mg BID PO 09/19/24 22:00 09/20/24 09:08 5 MG Melatonin 5 mg HS PO 09/20/24 01:11 09/20/24 01:16 5 MG Laboratory Results Laboratory Tests 09/19/24 05:17 09/20/24 16:30 Chemistry Test 09/20/24 16:30 Calcium Level 9.6 mg/dL (8.7-10.4) Urinalysis Test 09/17/24 09:15 Urine Color Colorless (Yellow) Urine Clarity Clear (Clear) Urine pH 5.0 (5.0-9.0) Urine Specific [place] 1.007 (1.001-1.035) Urine Protein Negative (Negative) Urine Ketones Negative (Negative) Urine Blood Negative /uL (Negative) Urine Nitrite Negative (Negative) Urine Bilirubin Negative (Negative) Urine Urobilinogen Normal mg/dL (Negative) Urine Leukocyte Esterase Negative /uL (Negative) Urine RBC <1 /hpf (0 - 3) Urine Microscopic WBC /HPF (0-3) Urine Squamous Epithelial Cells Few /hpf (<5) Urine Bacteria None seen /hpf (None Seen) Urine Hyaline Casts Few /lpf (0 - 2) Urine Creatinine 32.27 mg/dL (30.0-125.0) Urine Protein/Creatinine Ratio 0.19 Urine Sodium 84 mmol/L (40-220) Urine Glucose Normal mg/dL (Normal) Urine Total Protein < 6.0 mg/dL (1-14) Assessment/Plan Assessment/Plan Pneumonia, NSTEMI, CHF, Chronic kidney disease, Hypertension, COPD, Hyperlipidemia, s/p cath with no significant CAD dual-antiplatelet therapy, beta-cj and statin Coreg, amiodarone for afib Creat up to 2.83 today Will continue IVF Plan discussed with: Patient Date of Service: September 20, 2024 Billing Provider: JACQUELYN JOSEPH MD Common Visit Codes: [id number] INP/OBS CARE(HIGH) JACQUELYN JOSEPH MD September 20, 2024 17:45
[2024-09-20] MEDS: SODIUM CHLORIDE 0.9% 1,000 ML IV ONE (17:58)
[2024-09-20] MEDS ORDERED: SODIUM CHLORIDE 0.9% 1,000 ML IV SCH (18:00)
[2024-09-21] VITALS (9 sets, daily range): BP systolic 110–158; BP diastolic 72–113; PULSE 55–126; RESP 16–19; TEMP 36.9; O2SAT 96–100
[2024-09-21 08:23] LABS: Potassium 4.1 mmol/L (3.5-5.1); Sodium 143 mmol/L (136-145)
[2024-09-21 08:24] LABS: Anion Gap 10 (5-15); Calcium 9.5 mg/dL (8.7-10.4); Carbon Dioxide 26 mmol/L (20-31)
[2024-09-21 08:30] LABS: BUN/Creatinine Ratio 28.3 (10.0-20.0)
[2024-09-21 08:38] LABS: Blood Urea Nitrogen 73 mg/dL (9-23); Chloride 107 mmol/L (98-107); Glucose 249 mg/dL (74-106)
--- NOTE | 2024-09-21 13:18 | DVHPN2 ---
Progress Note Date Seen: September 21, 2024 Medical Necessity Reason Pt with a Central, PICC or Fol: No Subjective Patient reports: No new complaints, Feels better Review of Systems: Deferred Objective vital signs Vital Sign Date Time Temp Pulse Resp B/P (MAP) Pulse Ox O2 Delivery O2 Flow Rate FiO2 09/21/24 10:33 58 110/82 09/21/24 10:02 100 Room Air 09/21/24 10:02 0 21 09/21/24 09:00 97.7 17 97.7 Total Intake and Output 09/20/24 09/20/24 09/21/24 15:00 23:00 07:00 Intake Total 400 ml 1125 ml Output Total 675 ml Balance -275 ml 1125 ml medications Current Medications Medications Dose Ordered Sig/[place] Route Start Time Stop Time Status Last Admin Dose Admin Sodium Chloride 10 ml Q8HR IV 09/17/24 14:00 09/21/24 06:17 10 ML Acetaminophen/ Hydrocodone Bitart 1 tab Q4HP PRN PO 09/17/24 09:15 09/19/24 05:42 1 TAB Ondansetron HCl 4 mg Q4HP PRN IV 09/17/24 09:15 Docusate Sodium 100 mg BIDPRN PRN PO 09/17/24 09:15 Acetaminophen 650 mg Q6HP PRN PO 09/17/24 09:15 Morphine Sulfate 2 mg Q30M PRN IV 09/17/24 09:15 Isosorbide Dinitrate 20 mg BID PO 09/17/24 10:00 09/21/24 09:33 20 MG Albuterol 2.5 mg Q6HWA [facility] 09/17/24 12:00 09/19/24 07:32 2.5 MG Ipratropium [place] 0.5 mg Q6HWA [facility] 09/17/24 12:00 09/19/24 07:32 0.5 MG Methylprednisolone Sodium Succinate 40 mg Q12HR IV 09/17/24 22:00 09/21/24 09:32 40 MG Aspirin 81 mg DAILY PO 09/18/24 10:00 09/21/24 09:32 81 MG Clopidogrel Bisulfate 75 mg DAILY PO 09/18/24 10:00 09/21/24 09:32 75 MG Atorvastatin Calcium 40 mg HS PO 09/17/24 22:00 09/20/24 21:19 40 MG Amiodarone HCl 200 mg Q12HR PO 09/19/24 22:00 09/21/24 09:32 200 MG Carvedilol 12.5 mg Q12HR PO 09/19/24 22:00 09/21/24 09:33 12.5 MG Apixaban 5 mg BID PO 09/19/24 22:00 09/21/24 09:33 5 MG Melatonin 5 mg HS PO 09/20/24 01:11 09/20/24 21:20 5 MG Examination: GENERAL:Normal, HEENT:Normal, NECK:Normal, LUNGS:Normal, CVS:Normal, ABDOMEN:Normal, MSK:Normal, SKIN:Normal, NEURO:Normal, :Normal laboratory and microbiology Laboratory Tests 09/21/24 07:37 09/19/24 05:17 Test 09/21/24 07:37 Range/Units Serum Glucose 249 H 74-106 mg/dL Problem List/Assessment/Plan Problem List/Assessment/Plan Acute kidney injury, likely hemodynamic superimposed on CKD Chronic kidney disease IIIb follows Dr. Braun Acute on chronic congestive heart failure exacerbation status post left heart catheterization 09/19 Acute hypoxic respiratory failure secondary to above NSTEMI Diabetes mellitus-new onset-hemoglobin A1c 7 Paroxysmal atrial fibrillation with RVR COPD History of CAD with 2 MAURICE 2019 History pulmonary hypertension Plan: Patient underwent cardiac catheterization 09/19. Renal function worse secondary to contrast status post IV fluids Slightly better Renal function today Okay to resume diuretics and continue diuretics after discharge Stable for discharge from renal standpoint Plan discussed with: Patient GLENN BOSS MD September 21, 2024 13:18
[2024-09-21] MEDS ORDERED: ATOR20TA50 PO (13:28)
[2024-09-21] MEDS ORDERED: CLOP75TA70 PO (13:28)
--- NOTE | 2024-09-21 14:02 | DVHDS2 ---
Discharge Summary Date of Admission September 17, 2024 at 09:15 Date of Discharge: September 21, 2024 Labs/Diagnostic Data: Laboratory Results Test 09/21/24 07:37 09/19/24 05:17 09/18/24 06:08 09/17/24 11:02 Sodium Level 143 mmol/L (136-145) Potassium Level 4.1 mmol/L (3.5-5.1) Chloride Level 107 mmol/L (98-107) Carbon Dioxide Level 26 mmol/L (20-31) Anion Gap 10 (5-15) Blood Urea Nitrogen 73 mg/dL (9-23) Creatinine 2.58 mg/dL (0.700-1.30) Glomerular Filtration Rate Calc 27 mL/min (>90) BUN/Creatinine Ratio 28.3 (10.0-20.0) Serum Glucose 249 mg/dL (74-106) Calcium Level 9.5 mg/dL (8.7-10.4) White Blood Count 13.4 10^3/uL (4.4-10.8) Red Blood Count 4.66 10^6/uL (4.5-5.90) Hemoglobin 14.4 g/dL (13.5-17.5) Hematocrit 43.8 % (41.0-53.0) Mean Corpuscular Volume 94.0 fL (80.0-100.0) Mean Corpuscular Hemoglobin 30.9 pg (28.0-32.0) Mean Corpuscular Hemoglobin Concent 32.9 g/dL (32.0-36.0) Red Cell Distribution Width 14.2 % (11.8-14.3) Platelet Count 300 10^3/uL (140-450) Mean Platelet Volume 8.9 fL (6.9-10.8) Neutrophils (%) (Auto) 90.6 % (37.0-80.0) Lymphocytes (%) (Auto) 6.2 % (10.0-50.0) Monocytes (%) (Auto) 3.1 % (0.0-12.0) Eosinophils (%) (Auto) 0.0 % (0.0-7.0) Basophils (%) (Auto) 0.1 % (0.0-2.0) Neutrophils # (Auto) 12.1 10 ^3/uL (1.6-8.6) Lymphocytes # (Auto) 0.8 10 ^3/uL (0.4-5.4) Monocytes # (Auto) 0.4 10 ^3/uL (0-1.3) Eosinophils # (Auto) 0 10 ^3/uL (0-0.8) Basophils # (Auto) 0 10 ^3/uL (0-0.2) Nucleated Red Blood Cells 0.0 % Prothrombin Time 12.9 sec (9.3-11.8) Prothrombin Time INR 1.24 (0.9-1.15) Activated Partial Thromboplast Time 33.3 SEC (24.5-34.5) Total Bilirubin 0.3 mg/dL (0.2-1.0) Aspartate Amino Transferase (AST) 30 U/L (13-40) Alanine Aminotransferase (ALT) 50 U/L (7-40) Alkaline Phosphatase 53 U/L (46-116) Total Protein 7.1 g/dL (5.7-8.2) Albumin 4.8 g/dL (3.2-4.8) Troponin I High Sensitivity 450 ng/L (</=54) Hepatitis B Surface Antigen Negative (Negative) Hepatitis C Antibody Negative (Negative) Blood Gas Specimen Type Arterial Blood Gas Sample Site Right radial Blood Gas Patient Temperature 37.0 Arterial Blood Date Drawn [id number] Arterial Blood pH 7.438 (7.350-7.450) Arterial Blood Partial Pressure CO2 33.2 mmHg (35.0-48.0) Arterial Blood Partial Pressure O2 67.3 mmHg (83.0-108.0) Arterial Blood HCO3 21.9 mmol/L (21.0-28.0) Arterial Blood Oxygen Saturation 92.9 % (94.0-98.0) Arterial Blood Base Excess -1.5 mmol/L (-2.0-3.0) Arterial Blood Oxyhemoglobin 91.7 % (94.0-98.0) Arterial Blood Carboxyhemoglobin 0.8 % (0.5-1.5) Arterial Blood Methemoglobin 0.5 % (0.0-1.5) Brandon Test Yes Blood Gas Total Hemoglobin 13.90 g/dL (13.5-17.5) Blood Gas Modality Nasal cannula FiO2 % 28.0 Test 09/17/24 10:13 09/17/24 09:15 5/14/25 08:08 09/17/24 07:00 Magnesium Level 2.2 mg/dL (1.6-2.6) Triglycerides Level 69 mg/dL (< 150) Cholesterol Level 92 mg/dL (< 200) LDL Cholesterol 39 mg/dL (< 100) HDL Cholesterol 39 mg/dL (40-59) Urine Color Colorless (Yellow) Urine Clarity Clear (Clear) Urine pH 5.0 (5.0-9.0) Urine Specific [place] 1.007 (1.001-1.035) Urine Protein Negative (Negative) Urine Ketones Negative (Negative) Urine Blood Negative /uL (Negative) Urine Nitrite Negative (Negative) Urine Bilirubin Negative (Negative) Urine Urobilinogen Normal mg/dL (Negative) Urine Leukocyte Esterase Negative /uL (Negative) Urine RBC <1 /hpf (0 - 3) Urine Microscopic WBC /HPF (0-3) Urine Squamous Epithelial Cells Few /hpf (<5) Urine Bacteria None seen /hpf (None Seen) Urine Hyaline Casts Few /lpf (0 - 2) Urine Creatinine 32.27 mg/dL (30.0-125.0) Urine Protein/Creatinine Ratio 0.19 Urine Sodium 84 mmol/L (40-220) Urine Glucose Normal mg/dL (Normal) Urine Total Protein < 6.0 mg/dL (1-14) Thyroid Stimulating Hormone (TSH) 1.06 uIU/mL (0.55-4.78) Hemoglobin A1c 7.0 % A1C (<5.7) Phosphorus Level 5.2 mg/dL (2.4-5.1) B-Type Natriuretic Peptide 200.65 pg/mL (0-100) Vitamin D 25-Hydroxy 43.2 ng/mL (30.0-100) Other Laboratory Tests 09/21/24 07:37 09/19/24 05:17 Brief Hx & Hospital Course: Rakesh Irwin is a 64-year-old male with past medical history of CHF, coronary artery disease, NH with 2 stents 2019, chronic kidney disease, hypertension, hyperlipidemia, and COPD who came in due to shortness of breath. Patient states about 2 weeks ago he had a cold, he went to his primary care provider and was given antibiotics, steroids, and breathing treatments. He states they were helping at first, but 2 days ago his shortness of breath worsened and the breathing treatments were not helping. He denies chest pain, but does state that he has been becoming increasingly more fatigued with activity over the last few months. Had angiogram with patent stents and no further blockage Medical management for CAD Afib controlled Condition at Discharge: Good Final Diagnosis/Problems List NSTEMI Uncontrolled atrial fibrillation Discharge Disposition: Home Discharge Instruct/Medications Diet: Regular Activity: No Restrictions, As Tolerated Follow Up/Referral: PCP in 7 days Medications: aspirin, plavix, atorvastatin, carvedilol, eliquis Discharge Statement: "Patient was advised to return to the ER or call 911 if any headaches, dizziness, shortness of breath, chest pain, abdominal pain, bleeding, fevers, or worsening of medical condition. Patient was counseled about treatment plan, medications, possible side effects, patientverbalized understanding. All questions were answered to the best of my ability. This discharge took greater then 30 minutes in planning, reviewing documentation, counseling the patient, and discussing with other team members." ASSESSMENT ASSESSMENT Assessment NSTEMI Uncontrolled atrial fibrillation Date of Service: September 21, 2024 Billing Provider: JACQUELYN JOSEPH MD Common Visit Codes: 20881-LVM/OBS DISCH DAY >30min JACQUELYN JOSEPH MD September 21, 2024 14:02
== END 2024-09-21 16:16 | disposition home or self-care (01) | DRG 280 ==
LOC: ER 06:24 → OVERFLOW 09:15 → TELE-WESTW 23:55
PROVIDERS: ADMIT Hospitalist; ATTEND Hospitalist
PROC: B211YZZ Fluoroscopy of Multiple Coronary Arteries using Other Contrast (ICD-10-PCS; principal; 2024-09-19)
PROC: B215YZZ Fluoroscopy of Left Heart using Other Contrast (ICD-10-PCS; 2024-09-19)
PROC: 4A023N7 Measurement of Cardiac Sampling and Pressure, Left Heart, Percutaneous Approach (ICD-10-PCS; 2024-09-19)
DX: I21.4 Non-ST elevation (NSTEMI) myocardial infarction (principal); I50.33 Acute on chronic diastolic (congestive) heart failure; J96.01 Acute respiratory failure with hypoxia; J18.9 Pneumonia, unspecified organism; J44.0 Chronic obstructive pulmonary disease with (acute) lower respiratory infection; I13.0 Hypertensive heart and chronic kidney disease with heart failure and stage 1 through stage 4 chronic kidney disease, or unspecified chronic kidney disease; N17.9 Acute kidney failure, unspecified; D68.69 Other thrombophilia; Z68.45 Body mass index [BMI] 70 or greater, adult; E78.5 Hyperlipidemia, unspecified; I48.0 Paroxysmal atrial fibrillation; N18.32 Chronic kidney disease, stage 3b; E66.01 Morbid (severe) obesity due to excess calories; E11.22 Type 2 diabetes mellitus with diabetic chronic kidney disease; I27.20 Pulmonary hypertension, unspecified; I25.10 Atherosclerotic heart disease of native coronary artery without angina pectoris; F17.210 Nicotine dependence, cigarettes, uncomplicated; Z95.5 Presence of coronary angioplasty implant and graft; I25.2 Old myocardial infarction; Z79.01 Long term (current) use of anticoagulants; Z79.899 Other long term (current) drug therapy; Z79.84 Long term (current) use of oral hypoglycemic drugs
CPT/HCPCS: 36415; 36600; 71045; 76775; 80048; 80053; 80061; 81001; 82306; 82570; 82805; 83036; 83735; 83880; 84100; 84156; 84300; 84443; 84484; 85025; 85610; 85730; 86803; 86850; 86900; 86901; 87340; 93005; 93306; 93458; 94640; 99152; 99291; 99292; G0378; J2250; J3490; Q9967